=== PATIENT | male | born 1930 | race Caucasian/White ===

== ENCOUNTER → 2016-03-20 | Outpatient (CLI) | payer MEDICARE, BC ==
[2016-03-20 08:16] LABS: ALT 36 U/L (21-72); AST 22 U/L (17-59); Cholesterol 171 mg/dL (<200); HDL Cholesterol 49 mg/dL (40-60); Triglycerides 171 mg/dL (<150)
== END | disposition home or self-care (01) ==
LOC: LABWHC1 07:14
PROVIDERS: ATTEND Internal Medicine Interventional Cardiology
DX: E78.2 Mixed hyperlipidemia (principal)
CPT/HCPCS: 36415; 80061; 84450; 84460

== ENCOUNTER 2016-04-16 07:01 | Inpatient (IN) | payer MEDICARE, BC ==
[2016-04-16] MEDS ORDERED: NITROGLYCERIN OINT 1 INCH/GM PACKET TOPICAL STA (07:15)
[2016-04-16] MEDS ORDERED: ASPIRIN 81 MG CHEW PO STA (07:15)
--- NOTE | 2016-04-16 07:17 | ED ---
Chest Pain HPI - General Chief Complaint: Chest Pain Stated Complaint: Sob/chest pain Time Seen by Provider: 04/16/16 07:12 Source: patient, RN notes reviewed Mode of arrival: ambulatory Limitations: no limitations - History of Present Illness Initial Comments: Patient is a pleasant 86-year-old male presenting to the emergency department complaining of chest discomfort and shortness of breath. Onset of symptoms was last night. Symptoms now seem improved with oxygen. Symptoms did worsen with exertion walking to the car. Patient describes discomfort as an ache. There is some associated dyspnea. No leg pain or swelling. No cough or fever. No diaphoresis or nausea. No history of similar symptoms previously. - Related Data Home Medications Medication Instructions Recorded Confirmed Atenolol [Tenormin] 25 mg PO DAILY 09/17/13 04/16/16 Aspirin 81 mg PO DAILY 12/26/14 04/16/16 Multivit-Min/FA/Lycopene/Lut 1 tab PO DAILY 12/26/14 04/16/16 [Centrum Silver Tablet] Atorvastatin [Lipitor] 20 mg PO HS 04/16/16 04/16/16 [place]-3 Fatty Acids/Fish Oil [Fish 1 cap PO DAILY 04/16/16 04/16/16 Oil 1,000 mg Softgel] Previous Rx's Medication Instructions Recorded Nitroglycerin Sl Tabs [Nitrostat] 0.4 mg SUBLINGUAL Q5M PRN #25 tab 12/29/14 Allergies Allergy/AdvReac Type Severity Reaction Status Date / Time Penicillins AdvReac Rash/Hives Verified 04/16/16 07:47 Review of Systems ROS Statement: Those systems with pertinent positive or pertinent negative responses have been documented in the HPI. ROS Other: All systems not noted in ROS Statement are negative. Constitutional: Denies: fever Eyes: Denies: eye pain ENT: Denies: ear pain Respiratory: Reports: dyspnea. Denies: cough Cardiovascular: Reports: chest pain Endocrine: Denies: fatigue Gastrointestinal: Denies: abdominal pain Genitourinary: Denies: dysuria Musculoskeletal: Denies: back pain Skin: Denies: rash Neurological: Denies: weakness EKG Findings - EKG Comments: EKG Findings:: Sinus rhythm at 71. PVC is present. SC 190. QRS 92. QT 406. QTc 441. Normal axis. Normal QRS. No acute ST changes. Past Medical History Past Medical History: Chest Pain / Angina, Hyperlipidemia Additional Past Medical History / Comment(s): SOB, arthritis, History of Any Multi-Drug Resistant Organisms: None Reported Past Surgical History: Back Surgery, Cholecystectomy, Coronary Bypass/CABG, Heart Catheterization With Stent Additional Past Surgical History / Comment(s): back x 2, bone removed from left hip-placed in neck, cataracts Past Anesthesia/Blood Transfusion Reactions: No Reported Reaction Date of Last Stent Placement:: 2008 Past Psychological History: Anxiety Smoking Status: Former smoker Past Alcohol Use History: None Reported Past Drug Use History: None Reported - Past Family History Brother(s) Family Medical History: Cancer Sister(s) Family Medical History: Cancer, Deep Vein Thrombosis (DVT) General Exam Limitations: no limitations General appearance: alert, in no apparent distress Head exam: Present: atraumatic Eye exam: Present: normal appearance, PERRL ENT exam: Present: normal oropharynx Neck exam: Present: normal inspection Respiratory exam: Present: normal lung sounds bilaterally. Absent: chest wall tenderness Cardiovascular Exam: Present: regular rate, normal rhythm Expanded Peripheral pulses: 2+: Radial (R), Radial (L), Posterior Tibialis (R), Posterior Tibialis (L) GI/Abdominal exam: Present: soft. Absent: tenderness Extremities exam: Present: normal inspection. Absent: pedal edema, calf tenderness Neurological exam: Present: alert Psychiatric exam: Present: normal affect, normal mood Skin exam: Absent: rash Course Vital Signs 04/16/16 04/16/16 04/16/16 07:09 07:15 07:40 Temperature 98 F 98.3 F Pulse Rate 70 69 Pulse Rate [ 69 Bilateral Radial] Respiratory 20 15 15 Rate Blood Pressure 171/79 148/68 O2 Sat by Pulse 95 97 Oximetry 04/16/16 09:31 Temperature Pulse Rate 66 Pulse Rate [ Bilateral Radial] Respiratory 14 Rate Blood Pressure 129/68 O2 Sat by Pulse 994 H Oximetry - Reevaluation(s) Reevaluation #1: 04/16/16 10:42 Chest x-ray shows no acute process. Computed tomography scan the chest shows no pulmonary embolism. Possible nodule. Adjacent consolidation correlate for atelectasis/pneumonia. Patient reevaluated and resting comfortably in bed. Patient updated on results and plan. Case was discussed in detail with Dr. Patel, who will admit his patient with consult for cardiology. Admission orders written. Cardiology consult placed. IV heparin started. Critical Care Time Critical Care Time: Yes Total Critical Care Time: 31 Disposition Clinical Impression: Unstable angina pectoris Disposition: ADMITTED IP TO THIS HOSP
--- NOTE | 2016-04-16 08:09 | XR ---
EXAMINATION TYPE: XR chest 2V DATE OF EXAM: 04/16/2016 7:58 AM COMPARISON: NONE INDICATION: Chest pain TECHNIQUE: Single frontal view of the chest is obtained. FINDINGS: The heart size is normal. The pulmonary vasculature is normal. The lungs are clear. There is elevation of the right diaphragm. Fecal debris filled colon is under the diaphragm. IMPRESSION: 1. No acute pulmonary process.
[2016-04-16 08:22] LABS: Basophils % (A) 0 %; CH 31.6; CHCM 33.2; Eosinophils # (A) 0.1 k/uL (0-0.7); Eosinophils % (A) 2 %; HCT 40.8 % (39.0-53.0); HDW 2.49; HGB 13.4 gm/dL (13.0-17.5); Luc # (Auto) 0.23; Luc % (Auto) 3; Lymphocytes # (A) 2.8 k/uL (1.0-4.8); Lymphocytes % (A) 39 %; MCH 31.4 pg (25.0-35.0); MCHC 32.9 g/dL (31.0-37.0); MCV 95.4 fL (80.0-100.0); Mean Platelet Volume 7.1; Monocytes # (A) 0.5 k/uL (0-1.0); Monocytes % (A) 7 %; Neutrophils # (A) 3.4 k/uL (1.3-7.7); Neutrophils % (A) 49 %; RBC 4.27 m/uL (4.30-5.90); RDW 14.3 % (11.5-15.5); WBC 7.1 k/uL (3.8-10.6); WBC (Perox) 7.25
[2016-04-16 08:36] LABS: ALT 25 U/L (21-72); AST 19 U/L (17-59); Alkaline Phosphatase 62 U/L (38-126); Anion Gap 11 mmol/L; Blood Urea Nitrogen 21 mg/dL (9-20); Calcium 9.5 mg/dL (8.4-10.2); Carbon Dioxide 22 mmol/L (22-30); Chloride 109 mmol/L (98-107); Glucose 98 mg/dL (74-99); Magnesium 2.2 mg/dL (1.6-2.3); Non-African American GFR(MDRD) >60 (>60 ml/min/1.73 sqM); Potassium 4.2 mmol/L (3.5-5.1); Sodium 142 mmol/L (137-145); Total Bilirubin 0.6 mg/dL (0.2-1.3); Total Protein 6.5 g/dL (6.3-8.2)
[2016-04-16 08:44] LABS: Partial Thromboplastin Time 23.3 sec (22.0-30.0); Prothrombin Time 10.4 sec (9.0-12.0)
[2016-04-16 09:20] LABS: Creatine Kinase MB 2.8 ng/mL (0.0-2.4)
[2016-04-16] MEDS ORDERED: RX INFO: IV CONTRAST WAS GIVEN 1 EACH MISC MISCELLANE PRN (09:31)
--- NOTE | 2016-04-16 10:31 | CT ---
CT CHEST FOR PULMONARY EMBOLISM. EXAMINATION TYPE: CT angio chest DATE OF EXAM: 04/16/2016 10:02 AM INDICATION: SOB, chest pain CT DLP: 641 mGycm, Automated exposure control for dose reduction was used. CONTRAST: Patient injected with 100 ml mL of Omnipaque 350. COMPARISON: NONE TECHNIQUE: CT of the chest is performed on a spiral scan at 2 mm thick sections. Study is performed with intravenous contrast timed for evaluation for pulmonary embolism. This will limit additional po rtions of the evaluation. 3-D MIP images reconstructed by the technologist are reviewed on the compu ter in the coronal and sagittal planes. FINDINGS: No persistent filling defects are evident to suggest an acute pulmonary embolism. No mediastinal or hilar adenopathy enlarged by CT criteria is evident. A few shoddy lymph nodes are present. Vascular calcifications within the aorta. The ascending aorta diameter at the level of the m ain pulmonary artery is 3.9 cm. The main pulmonary artery diameter at the bifurcation is 2.9 cm. Streak opacities in the superior segment right lower lobe most likely on the basis of atelectasis. At the inferior posterior right lobe there is a consolidation. Atelectasis and pneumonia should be cons idered. There is a suggestion there may be a 0.7 cm on a lung nodule at the right lung base. Follow-u p is recommended. Series [address] sections are obtained through the upper abdomen. There is a 1.9 cm cyst measuring 4 [place]ounsf [place]eld units along the anterior inferior right lobe liver. IMPRESSIONS: 1. No acute pulmonary embolism. 2. Possible lung nodule posterior right lung base. This is adjacent to right lung base consolidation. Correlate for atelectasis and pneumonia. Follow-up chest CT is recommended.
[2016-04-16] MEDS ORDERED: HEPARIN SODIUM,PORCINE 5,000 UNIT/ML 1 ML VIAL IV ONE (10:43)
[2016-04-16] MEDS ORDERED: HEPARIN SODIUM,PORCINE 5,000 UNIT/ML 1 ML VIAL IV PRN (10:43)
[2016-04-16] MEDS ORDERED: NITROGLYCERIN SL TABS 0.4 MG TAB SUBLINGUAL PRN (10:43)
[2016-04-16] MEDS: HEPARIN SODIUM,PORCINE/D5W PMX 25,000 UNIT in DEXTROSE/WATER 1 500ML.BAG IV SCH (11:03)
[2016-04-16] MEDS: NITROGLYCERIN OINT 1 INCH/GM PACKET TOPICAL SCH ×3 (14:23→23:49)
[2016-04-16 14:51] LABS: Troponin I 0.04 ng/mL (0.000-0.034)
[2016-04-16 15:37] LABS: Troponin I 0.032 ng/mL (0.000-0.034)
[2016-04-16 15:45] LABS: Creatine Kinase MB 2.6 ng/mL (0.0-2.4)
[2016-04-16 19:41] LABS: Troponin I 0.023 ng/mL (0.000-0.034)
[2016-04-16] MEDS ORDERED: ATORVASTATIN 20 MG TAB PO SCH (21:00)
[2016-04-17 05:57] LABS: Mean Platelet Volume 7.5
[2016-04-17 06:14] LABS: Cholesterol 154 mg/dL (<200); HDL Cholesterol 52 mg/dL (40-60); Triglycerides 107 mg/dL (<150)
--- NOTE | 2016-04-17 06:26 | HP ---
DATE OF ADMISSION: Mr. Hopper is an 86-year-old gentleman. The patient presented earlier today to the emergency room with chest pain as his chief complaint. HISTORY OF PRESENT ILLNESS: This patient once again is 86, stated last night he developed some left chest ache apparently after showering in his house. He was short of breath, had finally eased. This morning though he woke up and still had some discomfort. It seemed to wax and wane a bit. It got worse when he was trying to walk to his car, short of breath associated with this. No fever, chills or cough. The patient has a history of coronary artery disease. Apparently had stenting a little under 2 years ago when he was found to have at catheterization, obstructive disease involving the proximal right coronary and at that time underwent stenting with a drug-eluting stent by Dr. Flores and this was back in December 2014. The patient has risk factors with hyperlipidemia and hypertension. He also has underlying arthritis, degenerative type. Home medications include: 1. [place]-3 fatty acid. 2. Fish oil. 3. Nitroglycerin sublingual. 4. Centrum Silver vitamins. 5. For medicines, atorvastatin 20 mg at bedtime. 6. Atenolol 25 mg daily. 7. Aspirin 81 mg daily. There is a history of allergies to PENICILLIN with rash and hives. REVIEW OF SYSTEMS: As mentioned in the history of present illness. No definite fever or chills. No nausea, vomiting. No urinary or bowel symptoms or leg edema. Other surgical history includes back surgery, cholecystectomy, previous coronary artery bypass and catheterization with stenting along with cataract surgery. Family history is positive for previous history of DVT and cancer with his brothers. SOCIAL HISTORY: He is a former smoker. He has been recently and lives on his own, rather self sufficient. On physical examination, a pleasant gentleman sitting up in bed, in no acute distress. Vital signs reveal a temperature 98.8, pulse of 68, respirations 16, and blood pressure 148/78 and he is 97% saturated on room air. Head and neck exam unremarkable, atraumatic. Extraocular movements are intact. Neck is supple without thyromegaly, adenopathy, or bruits. Lungs were clear to auscultation and percussion. Heart revealed a regular S1, S2 without murmurs or rubs appreciated. Abdomen is nontender. EXTREMITIES: No edema. RECTAL AND GENITAL EXAM: Deferred. Neurologic exam reveals him to be alert and oriented. Cranial nerves intact. No focal weakness noted. Laboratory testing revealed a white count of 7.1, hemoglobin 13.4 and a platelet count of 208. INR 1.0. D-dimer was elevated at 1.51. Electrolytes unremarkable. His BUN was 21, creatinine 0.9 giving him a GFR greater than 60. His troponin initially was 0.04 went down to 0.032. His albumin 39. Other liver function tests were unremarkable. The patient had a chest x-ray which showed no acute pulmonary process. Because of the D-dimer being elevated, A CT angiogram was performed, which showed no acute pulmonary embolus. There is some question of a possible nodule in the right lung base and patient's EKG revealed a sinus rhythm, rate 71, some PVCs were noted, but no acute ischemic changes present. OVERALL IMPRESSION AT THIS POINT: 1. His overall symptoms consistent with an unstable angina picture with a mild elevated troponins with history of coronary artery disease with previous bypass and stenting as described above. 2. Risk factors with hyperlipidemia and hypertension. Plans at this point, the patient will be monitored. Serial EKG and enzymes. Instructed the patient not to eat after midnight until seen by Cardiology in the morning. Further recommendations and treatment pending clinical response and results of above. MTDD
--- NOTE | 2016-04-17 08:06 | P.PN ---
Progress Note - Text The patient is an 86 showed gentleman who has a history of underlying coronary artery disease with previous catheterization and stenting about 18 months ago. Presented yesterday with recurrent chest pain. Found to have a mildly elevated troponin on presentation. He has been on heparin and nitrates and has not had any further in-hospital angina type pain. Vital signs reveal temperature 97.5 with a pulse of 67 and respirations 16. Blood pressure 143/70 knee is 96% saturated on 2 L nasal cannula. Lung and heart exam is clear and regular at this time. Abdomen nontender. No edema. No new neurological changes. Labs: Troponins have decreased from 0.04 demonstrated to 0.0-3. CKs have remained stable although CK-MBs were slightly elevated. PTT is 47.9 on heparin. Cholesterol values were good with an LDL cholesterol of 81. Patient does have some problems with statin medications. Impressions and plans: Continue present treatment awaiting for opinion from cardiology as far as further workup. Discussed with patient at bedside.
--- NOTE | 2016-04-17 08:30 | P.CRDCN ---
History of Present Illness Consult date: 04/17/16 Requesting physician: Jarrett Mccabe Consult reason: chest pain Chief complaint: Chest pain History of present illness: This is a pleasant 86-year-old gentleman who follows regularly with Dr. Flores in the office. He has a known history of coronary artery disease with prior coronary artery bypass grafting surgery in 1998, subsequent to that patient underwent stent to the circumflex in 2008, most recently in December 2014 patient underwent angioplasty with stenting of the right coronary artery. He also has a history of hypertension, and hyperlipidemia. He presents to the hospital with symptoms of chest discomfort. Patient states that on Friday evening after arriving home, he became quite short of breath, shortly thereafter he developed of midsternal chest pressure and heaviness which radiated to the left side of his chest. He took a sublingual nitroglycerin, he states that symptoms lasted about 45 minutes in duration. He denies any diaphoresis or nausea. Patient states that he slept well that night, had some mild discomfort in the morning and came to the emergency room for further evaluation. Laboratory data was reviewed, CBC normal, d-dimer 1.5, potassium 4.2, BUN 21, creatinine 0.9, troponin 0.040, 0.032, 0.023. BNP level 788. CTA of the chest was performed because of abnormal d-dimer, negative for pulmonary embolism. Possible lung nodule in the posterior right lung base. Initial EKG showed a normal sinus rhythm with mild lateral ST depression and occasional PVC. Repeat EKG performed this morning showed normal sinus rhythm with occasional PVC. At the time of my examination this morning, patient is currently chest pain-free. Blood pressure 142/70 with a heart rate in the 60s. Past Medical History Past Medical History: Coronary Artery Disease (CAD), Chest Pain / Angina, Eye Disorder, Hyperlipidemia Additional Past Medical History / Comment(s): Past glaucoma L eye but sx corrected. History of Any Multi-Drug Resistant Organisms: None Reported Past Surgical History: Adenoidectomy, Back Surgery, Cholecystectomy, Coronary Bypass/CABG, Heart Catheterization With Stent, Hernia Repair, Orthopedic Surgery , Tonsillectomy Additional Past Surgical History / Comment(s): 12/2014 PCI with stent, 2008 PCI with stent, 1998 CABG-1 vessel, back x 2, bone removed from left hip-placed in neck, bilateral cataracts removal and procedure to L eye for glaucoma, L inguinal hernia repair, colonoscopy. Past Anesthesia/Blood Transfusion Reactions: No Reported Reaction Date of Last Stent Placement:: 2014 Past Psychological History: Anxiety Additional Psychological History / Comment(s): Pt resides alone. His spouse in November 2015. He had been her oil refinery process technician for years. He uses no assistive device. He drives. Smoking Status: Former smoker Past Alcohol Use History: None Reported Additional Past Alcohol Use History / Comment(s): Pt started smoking in 1943 and quit in 1962. Past Drug Use History: None Reported - Past Family History Father Additional Family Medical History / Comment(s): Father of a brain tumor at the age of 56yrs. Unknown if it was cancerous. Mother Family Medical History: Cancer Additional Family Medical History / Comment(s): Mother had colon cancer removed with surgery. She lived to be 83 or 84yrs old. Brother(s) Family Medical History: Cancer Sister(s) Family Medical History: Cancer, Deep Vein Thrombosis (DVT) Medications and Allergies Home Medications Medication Instructions Recorded Confirmed Type Atenolol [Tenormin] 25 mg PO DAILY 09/17/13 04/16/16 History Aspirin 81 mg PO DAILY 12/26/14 04/16/16 History Multivit-Min/FA/Lycopene/Lut 1 tab PO DAILY 12/26/14 04/16/16 History [Centrum Silver Tablet] Atorvastatin [Lipitor] 20 mg PO HS 04/16/16 04/16/16 History [place]-3 Fatty Acids/Fish Oil [Fish 1 cap PO DAILY 04/16/16 04/16/16 History Oil 1,000 mg Softgel] Allergies Allergy/AdvReac Type Severity Reaction Status Date / Time Penicillins AdvReac Rash/Hives Verified 04/16/16 07:47 Physical Exam Vitals: Vital Signs Temp Pulse Pulse Resp BP BP Pulse Ox 04/17/16 07:48 97.5 F L 67 16 143/70 96 04/17/16 04:00 97.4 F L 71 16 129/69 95 04/16/16 23:53 64 16 141/64 96 04/16/16 20:55 97.0 F L 71 16 123/74 96 04/16/16 15:55 98.8 F 68 16 148/78 97 04/16/16 12:00 97.7 F 70 14 144/84 97 04/16/16 11:28 97.7 F 69 14 127/64 97 04/16/16 10:56 73 15 133/65 96 Intake and Output 04/16/16 04/17/16 04/17/16 22:59 06:59 14:59 Intake Total 549.333 Balance 549.333 Intake: Intake, IV Titration 199.333 Amount Heparin Sodium,Porcine/ 199.333 D5w Pmx 25,000 unit In Dextrose/Water 1 500ml. bag @ 11.853 UNITS/KG/HR 20 mls/hr IV .Q24H MO[facility] Rx #:[id number] Oral 350 Other: Voiding Method Toilet # Voids 1 1 Weight 90.6 kg PHYSICAL EXAMINATION: HEENT: Head is atraumatic, normocephalic. Pupils equal, round. Neck is supple. There is no elevated jugular venous pressure. HEART EXAMINATION: Heart S1 and S2 systolic ejection murmur is heard. CHEST EXAMINATION: Lungs are clear to auscultation and precussion. No chest wall tenderness is noted on palpation or with deep breathing. ABDOMEN: Soft, nontender. Bowel sounds are heard. No organomegaly noted. EXTREMITIES: 2+ peripheral pulses with no evidence of peripheral edema and no calf tenderness noted. NEUROLOGIC patient is awake, alert and oriented -3. . Results 04/17/16 05:31 04/16/16 07:20 Cardiac Enzymes 04/16/16 04/16/16 Range/Units 14:09 18:54 CK-MB (CK-2) 2.6 H* 2.0 (0.0-2.4) ng/mL Troponin I 0.032 0.023 (0.000-0.034) ng/mL Coagulation 04/16/16 04/17/16 Range/Units 18:54 05:31 APTT 34.4 H 47.9 H (22.0-30.0) sec Lipids 04/17/16 Range/Units 05:31 Triglycerides 107 (<150) mg/dL Cholesterol 154 (<200) mg/dL HDL Cholesterol 52 (40-60) mg/dL CBC 04/17/16 Range/Units 05:31 Plt Count 181 (150-450) k/uL Current Medications Generic Name Dose Route Start Last Admin Trade Name Freq PRN Reason Stop Dose Admin Aspirin 325 mg 04/17/16 09:00 Aspirin PO DAILY [facility] Atenolol 25 mg 04/17/16 09:00 Tenormin PO DAILY [facility] Atorvastatin Calcium 20 mg 04/16/16 21:00 04/16/16 20:49 Lipitor PO Not Given HS MOISE Heparin Sodium (Porcine) 0 unit 04/16/16 10:43 Heparin IV Q6HR PRN Low PTT Protocol Heparin Sodium/Dextrose 25,000 500 mls @ 20 mls/hr 04/16/16 10:45 04/16/16 21 :01 unit/ IV Solution IV 14.85 units/kg/hr .Q24H MOISE 25.05 mls/hr Protocol Titration 11.853 UNITS/KG/HR Miscellaneous Information 1 each 04/16/16 09:31 Rx Info: Iv Contrast Was Given MISCELLANE 04/18/16 09:31 DAILY PRN Per Protocol Nitroglycerin 1 inch 04/16/16 12:00 04/16/16 23:49 Nitro-Bid Oint TOPICAL 1 inch Q6HR MOISE Administration Nitroglycerin 0.4 mg 04/16/16 10:43 Nitrostat SUBLINGUAL Q5M PRN Chest Pain Sodium Chloride 10 ml 04/16/16 21:00 04/16/16 20:50 Saline Flush IV Not Given BID MOISE Intake and Output 04/16/16 04/17/16 04/17/16 22:59 06:59 14:59 Intake Total 549.333 Balance 549.333 Intake: Intake, IV Titration 199.333 Amount Heparin Sodium,Porcine/ 199.333 D5w Pmx 25,000 unit In Dextrose/Water 1 500ml. bag @ 11.853 UNITS/KG/HR 20 mls/hr IV .Q24H [facility] Rx #:[id number] Oral 350 Other: Voiding Method Toilet # Voids 1 1 Weight 90.6 kg 04/17/16 05:31 EKG Interpretations (text) EKG shows normal sinus rhythm with minimal lateral ST depression and occasional PVC. Assessment and Plan Plan: Assessment and plan #1 symptoms of midsternal chest discomfort with associated shortness of breath, suggestive of acute coronary syndrome. Troponins 0.040, 0.032, 0.023. EKG shows normal sinus rhythm with mild lateral ST depression and occasional PVC. #2 known history of coronary artery disease with prior bypass surgery, circumflex stenting, and RCA stent in 2014. #3 hypertension #4 hyperlipidemia Plan We will continue IV heparin. Obtain echocardiogram with Doppler study. The patient has been advised that he may need to undergo cardiac catheterization for more definitive diagnosis. Further recommendations to follow. DNP note has been reviewed, I agree with a documented findings and plan of care. Patient was seen and examined.
[2016-04-17] MEDS ORDERED: ASPIRIN 325 MG TAB PO SCH (09:00)
[2016-04-17] MEDS: ATENOLOL 25 MG TAB PO SCH (09:52)
--- NOTE | 2016-04-17 09:59 | ECHOF ---
Referral Reason: MEASUREMENTS -------- HEIGHT: 179.1 cm WEIGHT: 90.3 kg BP: 143/70 RVIDd: 3.3 cm (< 3.3) IVSd: 1.3 cm (0.6 - 1.1) LVIDd: 4.8 cm (3.9 - 5.3) LVPWd: 1.3 cm (0.6 - 1.1) IVSs: 1.8 cm LVIDs: 3.2 cm LVPWs: 1.8 cm LA Diam: 3.6 cm (2.7 - 3.8) LAESV Index (A-L): 23.25 ml/m Ao Diam: 3.5 cm (2.0 - 3.7) AV Cusp: 2.1 cm (1.5 - 2.6) LA Diam: 3.2 cm (2.7 - 3.8) MV EXCURSION: 10.738 mm (> 18.000) MV EF SLOPE: 39 mm/s (70 - 150) EPSS: 0.8 cm MV E [place]: 0.71 m/s MV DecT: 387 ms MV A [place]: 1.08 m/s MV E/A Ratio: 0.66 AV maxP.14 mmHg AV meanP.68 mmHg RAP: 5.00 mmHg RVSP: 30.87 mmHg FINDINGS -------- Sinus rhythm with extra systolic beats. This was a technically good study. The left ventricular size is normal. There is mild concentric left ventricular hypertrophy. Overall left ventricular systolic function is normal with, an EF between 55 - 60 %. The right ventricle is mildly enlarged. Normal LA size by volume 22+/-6 ml/m2. The right atrium is normal in size. Aortic valve is trileaflet and is moderately thickened. There is mild aortic stenosis present. Peak/mean gradient across the Aortic Valve is 23.14mmHg / 10.68mmHg. Mild mitral regurgitation is present. Mild tricuspid regurgitation present. Right ventricular systolic pressure is normal at < 35 mmHg. The pulmonic valve is normal. There is no pulmonic regurgitation present. The aortic root size is normal. IVC Not well visulized. There is no pericardial effusion. CONCLUSIONS -------- 1. Sinus rhythm with extra systolic beats. 2. There is mild aortic stenosis present. 3. Peak/mean gradient across the Aortic Valve is 23.14mmHg / 10.68mmHg. 4. Mild mitral regurgitation is present. 5. Mild tricuspid regurgitation present. 6. Right ventricular systolic pressure is normal at < 35 mmHg. 7. The pulmonic valve is normal. 8. The aortic root size is normal. 9. IVC Not well visulized. 10. There is no pericardial effusion. 11. This was a technically good study. 12. The left ventricular size is normal. 13. There is mild concentric left ventricular hypertrophy. 14. Overall left ventricular systolic function is normal with, an EF between 55 - 60 %. 15. The right ventricle is mildly enlarged. 16. Normal LA size by volume 22+/-6 ml/m2. 17. The right atrium is normal in size. 18. Aortic valve is trileaflet and is moderately thickened. [employer] ENGINEER: Annamarie Hinojosa RDCS
[2016-04-17] MEDS ORDERED: BIVALIRUDIN BOLUS 250 MG/50 ML IV ONE (11:35)
[2016-04-17] MEDS: NITROGLYCERIN OINT 1 INCH/GM PACKET TOPICAL SCH ×2 (12:14→12:16)
[2016-04-17] MEDS: HEPARIN SODIUM,PORCINE/D5W PMX 25,000 UNIT in DEXTROSE/WATER 1 500ML.BAG IV SCH (12:18)
[2016-04-17] MEDS ORDERED: SODIUM CHLORIDE 0.9% 1,000 ML in EMPTY BAG 1 BAG IV ONE (12:39)
[2016-04-17] MEDS ORDERED: ALPRAZolam 0.25 MG TAB PO PRN (12:39)
[2016-04-17] MEDS ORDERED: ATORVASTATIN 80 MG TAB PO STA (12:39)
[2016-04-17] MEDS ORDERED: ALPRAZolam 0.5 MG TAB PO PRN (12:39)
[2016-04-17] MEDS ORDERED: ASPIRIN 325 MG TAB PO STA (12:39)
[2016-04-17] MEDS ORDERED: NITROGLYCERIN SL TABS 0.4 MG TAB SUBLINGUAL PRN ×2 (12:39→14:07)
[2016-04-17] MEDS ORDERED: diphenhydrAMINE 50 MG/ML 1 ML VIAL ONE (13:05)
[2016-04-17] MEDS ORDERED: fentaNYL (PF) 50 MCG/ML 2 ML AMP ONE (13:05)
[2016-04-17] MEDS ORDERED: diphenhydrAMINE 50 MG/ML 1 ML VIAL IVP ONE (13:23)
[2016-04-17] MEDS ORDERED: fentaNYL (PF) 50 MCG/ML 2 ML AMP IV ONE (13:24)
[2016-04-17] MEDS ORDERED: LIDOCAINE 2% INJ 20 MG/ML SQ ONE (13:26)
[2016-04-17] MEDS ORDERED: BIVALIRUDIN 250 MG in SODIUM CHLORIDE 0.9% 50 ML IV ONE (13:37)
[2016-04-17] MEDS ORDERED: CLOPIDOGREL 75 MG TAB ONE (13:40)
[2016-04-17] MEDS ORDERED: CLOPIDOGREL 75 MG TAB PO ONE (13:47)
[2016-04-17] MEDS ORDERED: NITROGLYCERIN 1000MCG/10ML SYRINGE INTRACORON ONE (13:50)
[2016-04-17] MEDS ORDERED: IOHEXOL 350 MG/ML 100 ML BOTTLE INJ ONE (14:02)
[2016-04-17] MEDS ORDERED: ATROPINE SULFATE 0.1 MG/ML 10ML SYRINGE IV PRN (14:07)
[2016-04-17] MEDS ORDERED: ZOLPIDEM 5 MG TAB PO PRN (14:07)
[2016-04-17] MEDS ORDERED: RX INFO: IV CONTRAST WAS GIVEN 1 EACH MISC MISCELLANE PRN (14:07)
[2016-04-17] MEDS ORDERED: MAG HYDROX/AL HYDROX/SIMETH 30 ML CUP PO PRN (14:07)
[2016-04-17] MEDS ORDERED: SODIUM CHLORIDE 0.9% 1,000 ML IV SCH (14:15)
--- NOTE | 2016-04-17 18:10 | CC ---
DATE OF SERVICE: Mr. Hopper is an 86-year-old male with known history of coronary artery disease, status post coronary artery bypass grafting, history of percutaneous revascularization, hypertension, hyperlipidemia, who presented with symptoms of chest discomfort and evidence of non- ST segment elevation myocardial infarction. In view of that, recommendation was made regarding cardiac catheterization. The procedure as well as risks and complications were discussed with the patient who is in full understanding and agreement. PROCEDURE: Patient was brought to the [facility] in a fasting semisedated state after obtaining conscious moderate sedation. Following that, using Seldinger technique, a 6 [place] African sheath was introduced in the right femoral artery. Selective right and left coronary angiography was performed using 6 South African 4 bend right and left Sima catheters. Multiple views of the coronary artery including hemiaxial views were obtained. Following that, the 6 South African right Sima catheter was introduced to cannulate the TROTTER to the LAD. Images of the grafts were obtained. Following that, a 6 South African tight pigtail catheter was introduced into the left ventricle and a 30-degree BLACK view of the left ventricle was obtained. Following that, catheter was removed. Images were reviewed. FINDINGS: LEFT MAIN: This is a short-sized vessel bifurcating into circumflex and left anterior descending artery. Left main coronary artery has a 10% to 20% plaque distally. LEFT ANTERIOR DESCENDING ARTERY: This vessel is totally occluded proximally at the take off of the first diagonal branch. The diagonal branch has mild to moderate disease of 40% without any evidence of high-grade stenosis. LEFT CIRCUMFLEX: This is a large vessel, nondominant, giving rise to 3 obtuse marginal branches. The first one is the smallest in caliber and has about 90% stenosis at the takeoff. Shortly after the takeoff of the first obtuse marginal branch there is a 99% stenosis. The stented segment in the mid and distal left circumflex is patent with no evidence of significant restenosis. There is mild intimal disease in the mid nonstented segment. RIGHT CORONARY ARTERY: This is a large dominant vessel, bifurcating distally into PDA and posterolateral segment and branches. The proximal stented segment is patent. The mid segment has a 50% plaque. The distal vessel has mild intimal disease. The rest of the vessel has no high-grade stenosis. TROTTER TO THE LAD: The distal anastomotic site is patent. The flow into the left anterior descending is brisk. There was no evidence of high-grade stenosis. LEFT VENTRICULOGRAM: Left ventriculogram was performed in 30-degree BLACK view and revealed normal left ventricle size and systolic function. Ejection fraction was 60%. There was no significant mitral regurgitation. HEMODYNAMICS: There was no gradient across the aortic valve. The left ventricle end-diastolic was 20 mmHg. CONCLUSION: 1. Chronic occluded proximal left anterior descending. 2. Patent left internal mammary artery to the left anterior descending. 3. Patent stent to the proximal right coronary artery with moderate disease in the mid right coronary artery. 4. Patent stent to the mid and distal left circumflex, but with critical stenosis in the proximal left circumflex. 5. Normal left ventricular size and systolic function. RECOMMENDATIONS: In view of findings and anatomy, I have recommended proceeding with angioplasty and stenting of the left circumflex. The procedure as well as risks and complications were discussed with the patient who is in full understanding and agreement.
--- NOTE | 2016-04-17 19:03 | PTCA ---
DATE OF SERVICE: This is an 86-year-old male who presented with evidence of non-ST segment elevation myocardial infarction, underwent cardiac catheterization, was found to have critical stenosis involving the proximal left circumflex. In view of that, recommendation made regarding angioplasty and stenting. The procedure as well as risk and complications were discussed with the patient, who is in full understanding and agreement. PROCEDURE: A 6 Slovak FR4 guiding catheter was introduced into the system. After cannulating the left main, a 0.014 balanced medium weight J-wire was advanced across the lesion positioned distally. Then a 2.5 x 12 Trek balloon was advanced. One inflation at 8 atmospheres were done. Following that, the balloon was removed and 2.75 x 18 mm Xience Alpine stent was deployed, postdilated at 14 atmospheres. After the last inflation, after appropriate wait, the balloon and the guidewire were withdrawn back in the guiding catheter. Images were obtained and repeated. Those images revealed stable successful stenting. At that point, the guiding catheter, the balloon and the guidewire were removed. The sheath was removed. Hemostasis was obtained with deployment of an Angio-Seal. There were no immediate complications. Patient is returned to his room in stable condition. Of note, the patient received Angiomax per protocol as well as oral loading dose of Clopidogrel. He had no significant chest pain or EKG changes with the inflations. Duration of the procedure was 39 minutes. RESULT: Successful stenting of the proximal left circumflex with reduction in stenosis from 99% to 0%. RECOMMENDATIONS: Patient will be continued on aspirin, Plavix, beta tavo and statin. The importance of dual antiplatelet treatment was discussed with the patient and his family and are in full understanding and agreement. RAMONE
--- NOTE | 2016-04-17 19:06 | LTR ---
April 17, 2016 RE: Celio Hopper Dear Dr. Mccabe: I had the pleasure of performing cardiac catheterization on Mr. Operating room at [facility] on April 17, 2016. A full copy of procedure note will be forwarded to you. In brief he was found to have significant stenosis involving the proximal left circumflex with a patent TROTTER to the LAD. In view of that, he underwent successful stenting of that vessel using a drug-eluting stent. I am hopeful that this procedure will stabilize his status. Thank you again for allowing me to participate in his care. Please feel free to call for any questions. Sincerely, SALLY ALMANZA MD
[2016-04-18 06:41] LABS: Anion Gap 9 mmol/L; Blood Urea Nitrogen 19 mg/dL (9-20); Calcium 9.5 mg/dL (8.4-10.2); Carbon Dioxide 25 mmol/L (22-30); Chloride 107 mmol/L (98-107); Glucose 112 mg/dL (74-99); Non-African American GFR(MDRD) >60 (>60 ml/min/1.73 sqM); Potassium 4.4 mmol/L (3.5-5.1); Sodium 141 mmol/L (137-145)
--- NOTE | 2016-04-18 07:39 | P.PN ---
Progress Note - Text The patient is an 86-year-old gentleman with a history of coronary artery disease that presented with recurrent chest pain. Initial laboratory values revealed elevated troponin at 0.04 which decreased down to 0.0-3 on the third determination. He was placed on heparin consultation obtained with cardiology. Patient underwent heart catheterization and was found to have significant stenosis involving the proximal left circumflex with patent TROTTER to the LAD. Patient underwent successful stenting using a drug-eluting stent yesterday. The patient has had no further chest discomfort. He's been ambulating on the araya. His vital signs reveal temperature 97.5 with a pulse of 63 and respirations 16. Blood pressure 140/48 and he is 95% saturated on room air. Lung and heart examination is clear. No neurological deficits. No edema. Labs this morning reveal a normal electrolytes with a potassium 4.4. Blood sugar is 112. BUN of 19 with creatinine 1.04 given him a GFR greater than 60. Patient's cholesterol values were good with a triglyceride of 107, total cholesterol 154 and an LDL cholesterol of 81. HDL 52. Patient does have some musculoskeletal side effects from statins. Impressions and plans: Overall this 86-year-old gentleman with coronary artery disease having undergone angioplasty as described above. Anticipating discharge to home if okay with cardiology. They are to review any new medications. Patient to follow up with cardiology and myself over the maxillaries 7-10 days.
[2016-04-18] MEDS: ATENOLOL 25 MG TAB PO SCH (08:13)
[2016-04-18 08:48] VITALS: RESP 18
[2016-04-18] MEDS ORDERED: ASPIRIN 81 MG CHEW PO SCH (09:00)
[2016-04-18] MEDS ORDERED: CLOPIDOGREL 75 MG TAB PO SCH (09:00)
--- NOTE | 2016-04-18 11:27 | CDI ---
In responding to this query, please exercise your independent professional judgment. The [facility] Coding Staff and Clinical Documentation Specialists appreciate your assistance in clarifying documentation, maintaining compliance with coding guidelines, accurately documenting patients condition and capturing severity of illness. The fact that a question is asked does not imply that any particular answer is desired or expected. Communication forms are a method of clarifying documentation and are not made part of the Legal Health Record. Thank you in advance for your clarification. Last Revision, April 2015 Alban Whitaker [address] [place] [address] Documentation Clarification Form Date: 04/18/2016 11:16:00 AM From: Marilee Jaureguitony Admit Date: 04/17/2016 2:07:00 PM Patient Name: Celio Hopper Visit Number: [id number] Dr. Jarrett Mccabe Evidence of NSTEMI is documented in the Cardiac Cath report on 04/17. Patient History/Risk Factors: Hypertension Hyperlipidemia CAD with prior CABG Exsmoker Clinical Indicators: Chest discomfort with associated shortness of breath Troponin: 0.040 - 0.032 - 0.023 EKG Results: sinus Cardiac Cath showed critical stenosis to proximal left circumflex Treatment: Consult: Cardiology IV Heparin PO Aspirin Topical Nitro-bid IV Nitro x1 Cardiac Cath PTCA with drug eluting stent to left circumflex In order to capture the severity of condition and necessary documentation specificity, please clarify cause of chest pain: NSTEMI Ruled In? NSTEMI Ruled Out? Unstable Angina? Other (please specify) Unable to Determine Please document in your progress notes and discharge summary in order to capture severity of illness and risk of mortality. Include clinical findings that support your diagnosis. FYI: Press F11 to launch patient chart Place X here if this finding has no clinical significance, is not applicable or if you are not able to provide any additional documentation. RAMONE
[2016-04-18 11:58] VITALS: BP 142/72; PULSE 54; TEMP 97.2
--- NOTE | 2016-04-18 11:58 | P.PN ---
Subjective Principal diagnosis: Chest pain This is a pleasant 86-year-old gentleman who follows regularly with Dr. Flores in the office. He has a known history of coronary artery disease with prior coronary artery bypass grafting surgery in 1998, subsequent to that patient underwent stent to the circumflex in 2008, most recently in December 2014 patient underwent angioplasty with stenting of the right coronary artery. He also has a history of hypertension, and hyperlipidemia. He presents to the hospital with symptoms of chest discomfort. Patient was taken to the cardiac catheterization lab yesterday, where he underwent successful stenting of the proximal circumflex. Examined this morning, denies any chest pain or difficulty in breathing. EKG shows normal sinus rhythm with no changes from post-PCI. Laboratory data was reviewed, potassium 4.4, BUN 19, creatinine 1.0. Blood pressure 132/60 with a heart rate in the 60s. Objective - Vital Signs Vital signs: Vital Signs Temp 97.0 F L 04/18/16 07:55 Pulse 69 04/18/16 07:55 Resp 18 04/18/16 07:55 BP 132/62 04/18/16 07:55 Pulse Ox 95 04/18/16 07:55 Intake & Output 04/17/16 04/18/16 04/18/16 18:59 06:59 18:59 Intake Total 500 600 118 Output Total 850 500 Balance -350 100 118 Weight 89.4 kg Intake: Intake, IV Titration 500 Amount Sodium Chloride 0.9% 1, 500 000 ml @ 100 mls/hr IV . Q10H MOISE Rx#:[id number] Oral 600 118 Output: Urine 850 500 Other: # Voids 3 1 # Bowel Movements 2 - Exam PHYSICAL EXAMINATION: HEENT: Head is atraumatic, normocephalic. Pupils equal, round. Neck is supple. There is no elevated jugular venous pressure. HEART EXAMINATION: Heart S1 and S2 systolic ejection murmur is heard. CHEST EXAMINATION: Lungs are clear to auscultation and precussion. No chest wall tenderness is noted on palpation or with deep breathing. ABDOMEN: Soft, nontender. Bowel sounds are heard. No organomegaly noted. Right groin soft, no evidence of any hematoma. EXTREMITIES: 2+ peripheral pulses with no evidence of peripheral edema and no calf tenderness noted. NEUROLOGIC patient is awake, alert and oriented -3. - Labs CBC & Chem 7: 04/17/16 05:31 04/18/16 05:32 Labs: Abnormal Lab Results - Last 24 Hours (Table) 04/18/16 Range/Units 05:32 Glucose 112 H (74-99) mg/dL Assessment and Plan Plan: Assessment and plan #1 symptoms of midsternal chest discomfort with associated shortness of breath, suggestive of acute coronary syndrome. Troponins 0.040, 0.032, 0.023. EKG shows normal sinus rhythm with mild lateral ST depression and occasional PVC. #2 known history of coronary artery disease with prior bypass surgery, circumflex stenting, and RCA stent in 2014. #3 hypertension #4 hyperlipidemia Plan Patient underwent angioplasty with stent placement of the proximal circumflex. He may be able to be discharged home today from cardiology's perspective, a follow-up appointment will be made with Dr. Flores in the office. The patient will be discharged home on aspirin 81 mg daily, Tenormin 25 mg daily, Lipitor 40 mg daily, Plavix 75 mg daily, we'll also add a small dose of CODI inhibitor to the medication regime, and sublingual nitro as needed for chest pain DNP note has been reviewed, I agree with a documented findings and plan of care. Patient was seen and examined.
[2016-04-18] MEDS ORDERED: ATORVASTATIN 40 MG TAB PO SCH (21:00)
--- NOTE | 2016-04-19 08:13 | DS ---
DATE OF ADMISSION: 04/17/2016 DATE OF DISCHARGE: 04/18/2016 Mr. Hopper is an 86-year-old gentleman with a history of coronary artery disease presented with chest pain elevated troponin. Patient was seen by Cardiology, underwent heart catheterization found to have a significant stenosis involving the proximal left circumflex and underwent angioplasty and stenting with a drug eluting stent. Other laboratory values revealed a white count of 7.1, hemoglobin 13.4 and a platelet count of 208. His INR was 1.0. The patient was initially heparinized. Electrolytes unremarkable. BUN and creatinine of 19 and 1.04 giving a GFR greater than 60. Random blood sugar low 100s. Cholesterol revealed a total cholesterol 154 with an LDL cholesterol of 81, triglycerides 107 and HDL of 52. The patient also had a chest x-ray, which showed no acute pulmonary process and because of an elevated D-dimer on presentation a CAT scan angiogram was performed, which revealed no persistent filling defects evident to suggest acute pulmonary embolus. There was a small 0.7 cm lung nodule in the right lung base. The patient clinically did well. No further chest pain with his angioplasty and plans are now for discharge to home with home medications. The home medications included: 1. Aspirin 81 mg daily. 2. Atenolol 25 mg daily. 3. Lipitor 20 mg at bedtime. 4. Multiple vitamin daily. 5. Nitroglycerin 0.4 sublingual p.r.n. 6. Pomeroy-3 fatty acid 1 tablet daily. 7. Plavix 75mg daily. He will follow up in the office with Cardiology and myself over the next 5 to 7 days. FINAL DISCHARGE DIAGNOSES: 1. Non- ST segment elevated myocardial infarction, status post angioplasty and stenting with a drug eluting stent of the proximal circumflex. 2. Patient with history of coronary artery disease with also previous stenting back in 2014. Please see notes by Dr. Flores. 3. Also history of hyperlipidemia and history of hypertension. The patient has had some problems with statin medications with myalgias in the past. Patient to gradually increase activities. No extensive lifting or stair climbing. Call if any questions, concerns or problems or if recurrent chest pain not relieved by nitroglycerin he is to return to the ER. RAMONE
[2016-04-19] MEDS ORDERED: LISINOPRIL 5 MG TAB PO SCH (09:00)
== END 2016-04-18 13:06 | disposition home or self-care (01) | DRG 247 ==
LOC: EC 07:01 → 6SEL 10:43 → OBSVTOIN 14:07 → INTOOBSV 14:07 → OBSVTOIN 04-17 14:07
PROVIDERS: ADMIT Internal Medicine; ATTEND Internal Medicine
PROC: B2151ZZ Fluoroscopy of Left Heart using Low Osmolar Contrast (ICD-10-PCS; 2016-04-17)
PROC: 027034Z Dilation of Coronary Artery, One Artery with Drug-eluting Intraluminal Device, Percutaneous Approach (ICD-10-PCS; principal; 2016-04-17 13:30)
PROC: B2111ZZ Fluoroscopy of Multiple Coronary Arteries using Low Osmolar Contrast (ICD-10-PCS; 2016-04-17 13:30)
DX: I21.4 Non-ST elevation (NSTEMI) myocardial infarction (principal); I10 Essential (primary) hypertension; E78.5 Hyperlipidemia, unspecified; I49.3 Ventricular premature depolarization; F41.9 Anxiety disorder, unspecified; R91.1 Solitary pulmonary nodule; I25.110 Atherosclerotic heart disease of native coronary artery with unstable angina pectoris; M19.90 Unspecified osteoarthritis, unspecified site; Z95.5 Presence of coronary angioplasty implant and graft; Z87.891 Personal history of nicotine dependence; Z88.0 Allergy status to penicillin; Z79.82 Long term (current) use of aspirin; Z79.899 Other long term (current) drug therapy
CPT/HCPCS: 36415; 71020; 71275; 80048; 80053; 80061; 82550; 82553; 83735; 83880; 84484; 85025; 85049; 85379; 85610; 85730; 93005; 93306; 93459; 96365; 96366; 96376; 99291

== ENCOUNTER → 2017-09-10 | Outpatient (CLI) | payer MEDICARE, BC ==
[2017-09-10 07:19] LABS: Calcium 9.6 mg/dL (8.4-10.2); Potassium 4.9 mmol/L (3.5-5.1)
== END | disposition home or self-care (01) ==
LOC: LABWHC1 06:34
PROVIDERS: ATTEND Internal Medicine
DX: E78.4 Other hyperlipidemia (principal); E87.8 Other disorders of electrolyte and fluid balance, not elsewhere classified; R53.83 Other fatigue
CPT/HCPCS: 36415; 80048; 80061; 84443

== ENCOUNTER → 2017-11-24 | Outpatient (CLI) | payer MEDICARE, BC ==
[2017-11-24 08:26] LABS: HCT 43.2 % (39.0-53.0); MCHC 32.5 g/dL (31.0-37.0); MCV 98.6 fL (80.0-100.0); Mean Platelet Volume 7.4; Platelet Count 202 k/uL (150-450); RBC 4.38 m/uL (4.30-5.90); RDW 14.3 % (11.5-15.5); WBC 6.6 k/uL (3.8-10.6)
[2017-11-24 08:55] LABS: Albumin 3.9 g/dL (3.5-5.0); Calcium 9.5 mg/dL (8.4-10.2); Potassium 5.4 mmol/L (3.5-5.1); Total Bilirubin 0.4 mg/dL (0.2-1.3); Total Protein 6.5 g/dL (6.3-8.2)
== END | disposition home or self-care (01) ==
LOC: LABWHC1 06:48
PROVIDERS: ATTEND Internal Medicine Interventional Cardiology
DX: E87.8 Other disorders of electrolyte and fluid balance, not elsewhere classified (principal); R53.83 Other fatigue; E78.2 Mixed hyperlipidemia
CPT/HCPCS: 36415; 80053; 80061; 84443; 85027

== ENCOUNTER → 2017-12-29 | Outpatient (CLI) | payer MEDICARE, BC ==
--- NOTE | 2017-12-29 14:48 | US ---
EXAMINATION TYPE: US venous doppler duplex LE LT DATE OF EXAM: 12/29/2017 2:38 PM COMPARISON: NONE CLINICAL HISTORY: pain left foot M79.672. SIDE PERFORMED: Left TECHNIQUE: The lower extremity deep venous system is examined utilizing real time linear array sonog bryson with graded compression, doppler sonography and color-flow sonography. VESSELS IMAGED: External Iliac Vein (EIV) Common Femoral Vein Deep Femoral Vein Greater Saphenous Vein * Femoral Vein Popliteal Vein Proximal Calf Veins (* superficial vessels) Left Leg: Negative for DVT IMPRESSION: No evidence for DVT at this time.
== END ==
LOC: RADUSWWP 13:55
PROVIDERS: ATTEND Orthopaedic Surgery
DX: M79.672 Pain in left foot (principal); E78.5 Hyperlipidemia, unspecified; I11.9 Hypertensive heart disease without heart failure; E03.9 Hypothyroidism, unspecified

== ENCOUNTER 2018-08-10 12:31 | Emergency (ER) | payer MEDICARE, BC ==
[2018-08-10] MEDS ORDERED: SODIUM CHLORIDE 0.9% 500 ML 500 ML IV STA (13:44)
[2018-08-10] MEDS ORDERED: ASPIRIN 81 MG PO STA (13:44)
--- NOTE | 2018-08-10 13:44 | ED ---
General Adult HPI - General Source: patient, RN notes reviewed Mode of arrival: wheelchair Limitations: no limitations <Will Parker - Last Filed: 08/10/18 16:53> <Red Dorman - Last Filed: 08/10/18 17:01> - General Chief complaint: Dizziness Stated complaint: low BP, weakness Time Seen by Provider: 08/10/18 13:31 - History of Present Illness Initial comments: 88-year-old male with a past medical history of CAD with 3 stents, chest pain, hyperlipidemia, thyroid disorder presents to the emergency department for a chief complaint of lightheadedness. Patient states this has been ongoing for several weeks possibly months. States that today he was nailing something along his house and he started to feel lightheaded. States that when he sat down he felt like his blood pressure was low so he put his feet up and did feel somewhat better. However patient did decide to be evaluated in the emergency department. Apparently patient had about 5 minutes of chest discomfort while here and had some aching pain before being seen. This resolved before he was seen. Patient had a heart cath 2 years ago where he received 3 stents. Patient denies any chest pain whatsoever at this time. No shortness of breath.Patient has no other complaints at this time including shortness of breath, abdominal pain, nausea or vomiting, headache, or visual changes. (Will Parker) - Related Data Home Medications Medication Instructions Recorded Confirmed Aspirin 81 mg PO HS 12/26/14 08/10/18 Effie-3 Fatty Acids/Fish Oil [Fish 1 cap PO DAILY 04/16/16 08/10/18 Oil 1,000 mg Softgel] Levothyroxine Sodium [Synthroid] 75 mcg PO DAILY 08/10/18 08/10/18 Losartan Potassium 50 mg PO DAILY 08/10/18 08/10/18 Magnesium 200 mg PO DAILY 08/10/18 08/10/18 Rosuvastatin [Crestor] 20 mg PO HS 08/10/18 08/10/18 Ubidecarenone [Co Q-10] 300 mg PO HS 08/10/18 08/10/18 Vitamin E (Dl,Tocopheryl Acet) 400 unit PO DAILY 08/10/18 08/10/18 [Vitamin E] Allergies Allergy/AdvReac Type Severity Reaction Status Date / Time Penicillins Allergy Rash/Hives Verified 08/10/18 14:01 Review of Systems ROS Other: All systems not noted in ROS Statement are negative. <Will Parker - Last Filed: 08/10/18 16:53> ROS Other: All systems not noted in ROS Statement are negative. <Red Dorman - Last Filed: 08/10/18 17:01> ROS Statement: Those systems with pertinent positive or pertinent negative responses have been documented in the HPI. Past Medical History Past Medical History: Coronary Artery Disease (CAD), Chest Pain / Angina, Eye Disorder, Hyperlipidemia, Thyroid Disorder Additional Past Medical History / Comment(s): Past glaucoma L eye but sx corrected. hard of hearing- wears aids History of Any Multi-Drug Resistant Organisms: None Reported Past Surgical History: Adenoidectomy, Back Surgery, Cholecystectomy, Coronary Bypass/CABG, Heart Catheterization With Stent, Hernia Repair, Orthopedic Surgery, Tonsillectomy Additional Past Surgical History / Comment(s): 12/2014 PCI with stent, 2008 PCI with stent, 1998 CABG-1 vessel, back x 2, bone removed from left hip-placed in neck, bilateral cataracts removal and procedure to L eye for glaucoma, L inguinal hernia repair, colonoscopy. Past Anesthesia/Blood Transfusion Reactions: No Reported Reaction Date of Last Stent Placement:: 2014 Past Psychological History: Anxiety Smoking Status: Former smoker Past Alcohol Use History: None Reported Past Drug Use History: None Reported - Past Family History Father Additional Family Medical History / Comment(s): Father of a brain tumor at the age of 56yrs. Unknown if it was cancerous. Mother Family Medical History: Cancer Additional Family Medical History / Comment(s): Mother had colon cancer removed with surgery. She lived to be 83 or 84yrs old. Brother(s) Family Medical History: Cancer Sister(s) Family Medical History: Cancer, Deep Vein Thrombosis (DVT) <Will Parker - Last Filed: 08/10/18 16:53> General Exam Limitations: no limitations General appearance: alert, in no apparent distress Head exam: Present: atraumatic, normocephalic, normal inspection Eye exam: Present: normal appearance, PERRL, EOMI. Absent: scleral icterus, conjunctival injection, periorbital swelling ENT exam: Present: normal exam, mucous membranes moist Neck exam: Present: normal inspection, full ROM. Absent: tenderness, meningismus, lymphadenopathy Respiratory exam: Present: normal lung sounds bilaterally. Absent: respiratory distress, wheezes, rales, rhonchi, stridor Cardiovascular Exam: Present: regular rate, normal rhythm, normal heart sounds. Absent: systolic murmur, diastolic murmur, rubs, gallop, clicks Neurological exam: Present: alert, oriented X3, CN II-XII intact, normal gait, other (GCS 15) Expanded Patient oriented to: Present: person, place, time Speech: Present: fluid speech Cranial nerves: EOM's Intact: Normal, Tongue Deviation: Normal, Nystagmus: Normal, Facial Sensation: Normal Cerebellar function: Finger to Nose: Normal Upper motor neuron: Pronator Drift: Normal Sensory exam: Upper Extremity Light Touch: Normal, Upper Extremity Pin Prick: Normal, Lower Extremity Light Touch: Normal, Lower Extremity Pin Prick: Normal Motor strength exam: RUE: 5, LUE: 5, RLE: 5, LLE: 5 Eye Response: (4) open spontaneously Motor Response: (6) obeys commands Verbal Response: (5) oriented [place] Total: 15 Psychiatric exam: Present: normal affect, normal mood <Will Parker P - Last Filed: 08/10/18 16:53> Course Vital Signs 08/10/18 08/10/18 08/10/18 12:32 14:39 15:36 Temperature 97.9 F 97.3 F L Pulse Rate 61 51 L Pulse Rate [ 51 L Sitting] Pulse Rate [ 53 L Standing] Pulse Rate [ 50 L Supine] Respiratory 18 17 19 Rate Blood Pressure 134/69 140/68 Blood Pressure 133/60 [Sitting] Blood Pressure 124/61 [Standing] Blood Pressure 127/63 [Supine] O2 Sat by Pulse 96 93 L 96 Oximetry EKG Findings - EKG Comments: EKG Findings:: Sinus bradycardia, ventricular rate 59, [place] interval 202, QTC 427, occasional PVC <Will Parker P - Last Filed: 08/10/18 16:53> Medical Decision Making - Lab Data Result diagrams: 08/10/18 13:30 08/10/18 13:30 <Will Parker P - Last Filed: 08/10/18 16:53> - Lab Data Result diagrams: 08/10/18 13:30 08/10/18 13:30 <Red Dorman - Last Filed: 08/10/18 17:01> - Medical Decision Making 88-year-old male presents to the emergency department for a chief complaint of lightheadedness. Patient states this has been ongoing for several weeks, possibly months. Patient also had about 5 minutes of chest discomfort that resolved before being seen. EKG is unremarkable. Patient does have some PVCs noted. Patient has a heart rate in the 50s which is his normal. Blood pressure is in normal limits. Patient well-appearing, exam is unremarkable. CBC and CMP are unremarkable. Troponin negative. Chest x-ray did show bilateral lower lobe atelectasis or infiltrate. Clinically no pneumonia present. On review of the x-ray this is unimpressive. CT brain showed degenerative and nonspecific white matter changes most likely basis of remote white matter ischemia. Remote right basilar ganglia lacunar infarct as well. She was evaluated by Dr. Dorman as well. Discussed case with Dr. Mccabe for possible addition, at this time he prefers to see patient in the office tomorrow. Patient agrees with this. (Will Parker) Patient reevaluated by myself, Dr. Dorman. Patient states he's been having some lightheadedness over the past couple of weeks, intermittently. Patient states he had some mild chest discomfort on arrival to the emergency department. Patient states it just lasted a couple minutes and has resolved and has been symptom-free since that time. Patient and family updated on results. Case was discussed in detail with Dr. Gonzales who is familiar with his patient. He does recommend discharge and will follow-up and recommends patient call tomorrow. (Red Dorman) - Lab Data Lab Results 08/10/18 08/10/18 08/10/18 Range/Units 13:30 13:30 13:30 WBC 8.0 (3.8-10.6) k/uL RBC 4.22 L (4.30-5.90) m/uL Hgb 13.0 (13.0-17.5) gm/dL Hct 40.6 (39.0-53.0) % MCV 96.2 (80.0-100.0) fL MCH 30.8 (25.0-35.0) pg MCHC 32.0 (31.0-37.0) g/dL RDW 14.1 (11.5-15.5) % Plt Count 190 (150-450) k/uL Neutrophils % 64 % Lymphocytes % 26 % Monocytes % 7 % Eosinophils % 1 % Basophils % 0 % Neutrophils # 5.1 (1.3-7.7) k/uL Lymphocytes # 2.1 (1.0-4.8) k/uL Monocytes # 0.6 (0-1.0) k/uL Eosinophils # 0.1 (0-0.7) k/uL Basophils # 0.0 (0-0.2) k/uL PT 10.1 (9.0-12.0) sec INR 0.9 (<1.2) APTT 23.2 (22.0-30.0) sec Sodium 139 (137-145) mmol/L Potassium 4.6 (3.5-5.1) mmol/L Chloride 106 (98-107) mmol/L Carbon Dioxide 25 (22-30) mmol/L Anion Gap 8 mmol/L BUN 19 (9-20) mg/dL Creatinine 1.07 (0.66-1.25) mg/dL Est GFR (CKD-EPI)AfAm 72 (>60 ml/min/1.73 sqM) Est GFR (CKD-EPI)NonAf 62 (>60 ml/min/1.73 sqM) Glucose 98 (74-99) mg/dL Calcium 9.8 (8.4-10.2) mg/dL Magnesium 2.3 (1.6-2.3) mg/dL Total Bilirubin 0.5 (0.2-1.3) mg/dL AST 26 (17-59) U/L ALT 28 (21-72) U/L Alkaline Phosphatase 50 (38-126) U/L Troponin I (0.000-0.034) ng/mL Total Protein 6.4 (6.3-8.2) g/dL Albumin 4.0 (3.5-5.0) g/dL 08/10/18 Range/Units 13:30 WBC (3.8-10.6) k/uL RBC (4.30-5.90) m/uL Hgb (13.0-17.5) gm/dL Hct (39.0-53.0) % MCV (80.0-100.0) fL MCH (25.0-35.0) pg MCHC (31.0-37.0) g/dL RDW (11.5-15.5) % Plt Count (150-450) k/uL Neutrophils % % Lymphocytes % % Monocytes % % Eosinophils % % Basophils % % Neutrophils # (1.3-7.7) k/uL Lymphocytes # (1.0-4.8) k/uL Monocytes # (0-1.0) k/uL Eosinophils # (0-0.7) k/uL Basophils # (0-0.2) k/uL PT (9.0-12.0) sec INR (<1.2) APTT (22.0-30.0) sec Sodium (137-145) mmol/L Potassium (3.5-5.1) mmol/L Chloride (98-107) mmol/L Carbon Dioxide (22-30) mmol/L Anion Gap mmol/L BUN (9-20) mg/dL Creatinine (0.66-1.25) mg/dL Est GFR (CKD-EPI)AfAm (>60 ml/min/1.73 sqM) Est GFR (CKD-EPI)NonAf (>60 ml/min/1.73 sqM) Glucose (74-99) mg/dL Calcium (8.4-10.2) mg/dL Magnesium (1.6-2.3) mg/dL Total Bilirubin (0.2-1.3) mg/dL AST (17-59) U/L ALT (21-72) U/L Alkaline Phosphatase (38-126) U/L Troponin I <0.012 (0.000-0.034) ng/mL Total Protein (6.3-8.2) g/dL Albumin (3.5-5.0) g/dL Disposition Is patient prescribed a controlled substance at d/c from ED?: No Time of Disposition: 16:58 <Will Parker - Last Filed: 08/10/18 16:53> <Red Dorman - Last Filed: 08/10/18 17:01> Clinical Impression: Lightheadedness Disposition: HOME SELF-CARE Condition: Good Instructions (If sedation given, give patient instructions): Lightheadedness (ED) Additional Instructions: Please follow-up with Dr. Dembrosky tomorrow morning. Please return here to the emergency department if you have any worsening symptoms. Referrals: Jarrett Mccabe MD [Primary Care Provider] - 1-2 days
[2018-08-10 14:04] LABS: Basophils % (A) 0 %; Eosinophils # (A) 0.1 k/uL (0-0.7); Eosinophils % (A) 1 %; HCT 40.6 % (39.0-53.0); Lymphocytes # (A) 2.1 k/uL (1.0-4.8); Lymphocytes % (A) 26 %; MCH 30.8 pg (25.0-35.0); MCV 96.2 fL (80.0-100.0); Mean Platelet Volume 7.3; Monocytes # (A) 0.6 k/uL (0-1.0); Monocytes % (A) 7 %; Neutrophils # (A) 5.1 k/uL (1.3-7.7); Neutrophils % (A) 64 %; Platelet Count 190 k/uL (150-450); RBC 4.22 m/uL (4.30-5.90); RDW 14.1 % (11.5-15.5)
[2018-08-10 14:11] LABS: INR 0.9 (<1.2); Partial Thromboplastin Time 23.2 sec (22.0-30.0); Prothrombin Time 10.1 sec (9.0-12.0)
[2018-08-10 14:15] LABS: Calcium 9.8 mg/dL (8.4-10.2); Magnesium 2.3 mg/dL (1.6-2.3); Potassium 4.6 mmol/L (3.5-5.1); Total Bilirubin 0.5 mg/dL (0.2-1.3); Total Protein 6.4 g/dL (6.3-8.2)
--- NOTE | 2018-08-10 14:16 | XR ---
EXAMINATION TYPE: XR chest 2V DATE OF EXAM: 08/10/2018 COMPARISON: 04/16/2016 TECHNIQUE: PA and lateral views submitted. HISTORY: Chest pain FINDINGS: Left-sided consolidation noted. No pleural effusion or pneumothorax. Hypertrophic and degenerative ch anges spine. Atherosclerotic change aorta. Subsegmental changes along the right lung base. IMPRESSION: 1. Bilateral lower lobe atelectasis or infiltrate.
--- NOTE | 2018-08-10 14:27 | CT ---
EXAMINATION TYPE: CT brain wo con DATE OF EXAM: 08/10/2018 COMPARISON: None HISTORY: Sharp pain in back of head followed by dizziness CT DLP: 1082.4 mGycm Automated exposure control for dose reduction was used. FINDINGS: Moderate to degenerative change with a greater frontal lobe component. Area of low attenuation involv ing the right basal ganglia suggestive of remote lacunar infarction. Low-attenuation the white matter is nonspecific. No acute hemorrhage or mass effect. Calvarium intact. Intracranial atherosclerotic c hanges noted. IMPRESSION: 1. DEGENERATIVE AND NONSPECIFIC WHITE MATTER CHANGES. MOST LIKELY IN THE BASIS OF REMOTE WHITE MATTER ISCHEMIA. NO ACUTE HEMORRHAGE. IF THERE IS CONCERN FOR ACUTE ISCHEMIA CORRELATE WITH MRI CLINICAL LY WARRANTED. 2. REMOTE RIGHT BASAL GANGLIA LACUNAR INFARCT.
[2018-08-10 17:26] VITALS: BP 149/79; PULSE 52; RESP 18; TEMP 98.1
== END 2018-08-10 17:26 | disposition home or self-care (01) ==
LOC: EC 12:31
DX: R42 Dizziness and giddiness (principal); J98.11 Atelectasis; R93.89 Abnormal findings on diagnostic imaging of other specified body structures; R07.89 Other chest pain; I25.119 Atherosclerotic heart disease of native coronary artery with unspecified angina pectoris; E78.5 Hyperlipidemia, unspecified; E07.9 Disorder of thyroid, unspecified; Z87.891 Personal history of nicotine dependence; Z79.82 Long term (current) use of aspirin; Z79.890 Hormone replacement therapy; Z79.899 Other long term (current) drug therapy; Z88.0 Allergy status to penicillin; Z95.1 Presence of aortocoronary bypass graft; Z95.5 Presence of coronary angioplasty implant and graft
CPT/HCPCS: 36415; 70450; 71046; 80053; 83735; 84484; 85025; 85610; 85730; 93005; 96360; 99284

== ENCOUNTER → 2019-07-13 | Outpatient (CLI) | payer MEDICARE, BC | END | disposition home or self-care (01) | LOC: LABWHC1 09:11 | PROVIDERS: ATTEND Internal Medicine Interventional Cardiology | DX: U07.1 COVID-19 (principal) ==

== ENCOUNTER 2019-07-15 06:17 | Day surgery (SDC) | payer MEDICARE, BC ==
[~2019-07-15 06:17] MED LIST: ALPRAZolam 0.25 MG TAB PO PRN; ALPRAZolam 0.5 MG TAB PO PRN; ASPIRIN 325 MG TAB PO STA; ATORVASTATIN 80 MG TAB PO STA; NITROGLYCERIN SL TABS 0.4 MG TAB SUBLINGUAL PRN; SODIUM CHLORIDE 0.9% 1,000 ML in EMPTY BAG 1 BAG IV ONE
[2019-07-15] MEDS ORDERED: SODIUM CHLORIDE 0.9% 1,000 ML IV ONE (07:05)
[2019-07-15 07:09] LABS: Basophils % (A) 0 %; Eosinophils # (A) 0.2 k/uL (0-0.7); Eosinophils % (A) 1 %; HCT 42.5 % (39.0-53.0); HGB 13.6 gm/dL (13.0-17.5); Lymphocytes % (A) 16 %; MCH 30.5 pg (25.0-35.0); MCHC 31.9 g/dL (31.0-37.0); MCV 95.8 fL (80.0-100.0); Mean Platelet Volume 7.3; Monocytes # (A) 0.8 k/uL (0-1.0); Monocytes % (A) 7 %; Neutrophils % (A) 73 %; Platelet Count 202 k/uL (150-450); RBC 4.44 m/uL (4.30-5.90); WBC 12.4 k/uL (3.8-10.6)
[2019-07-15 07:17] LABS: Calcium 9.5 mg/dL (8.4-10.2); Potassium 4.2 mmol/L (3.5-5.1)
[2019-07-15] MEDS ORDERED: LIDOCAINE 1% INJ 10MG/ML (20 ML MDV) ONE (07:25)
[2019-07-15] MEDS ORDERED: fentaNYL (PF) 50 MCG/ML 2 ML AMP ONE (07:25)
[2019-07-15] MEDS ORDERED: fentaNYL (PF) 50 MCG/ML 2 ML AMP IVP ONE (08:49)
[2019-07-15] MEDS ORDERED: LIDOCAINE 1% INJ 10MG/ML (20 ML MDV) SQ ONE (08:52)
[2019-07-15] MEDS ORDERED: BIVALIRUDIN BOLUS 250 MG/50 ML IV ONE (09:05)
[2019-07-15] MEDS ORDERED: CLOPIDOGREL 75 MG TAB ONE (09:07)
[2019-07-15] MEDS ORDERED: BIVALIRUDIN 250 MG in SODIUM CHLORIDE 0.9% 50 ML IV ONE (09:10)
[2019-07-15] MEDS ORDERED: CLOPIDOGREL 75 MG TAB PO ONE (09:10)
[2019-07-15] MEDS ORDERED: NITROGLYCERIN 1000MCG/10ML SYRINGE INTRACORON ONE (09:19)
[2019-07-15] MEDS ORDERED: IOPAMIDOL-370 125ML BTL INJ ONE ×2 (09:19→09:49)
[2019-07-15] MEDS ORDERED: MAG HYDROX/AL HYDROX/SIMETH 30 ML CUP PO PRN (09:46)
[2019-07-15] MEDS ORDERED: ATROPINE SULFATE 0.1 MG/ML 10ML SYRINGE IV PRN (09:46)
[2019-07-15] MEDS ORDERED: ZOLPIDEM 5 MG TAB PO PRN (09:46)
[2019-07-15] MEDS ORDERED: NITROGLYCERIN SL TABS 0.4 MG TAB SUBLINGUAL PRN (09:46)
[2019-07-15] MEDS ORDERED: RX INFO: IV CONTRAST WAS GIVEN 1 EACH MISC MISCELLANE PRN (09:46)
[2019-07-15] MEDS ORDERED: SODIUM CHLORIDE 0.9% 1,000 ML IV SCH (10:00)
--- NOTE | 2019-07-15 10:52 | PTCA ---
PERCUTANEOUSTRANS CORORONARY ANGIOGRAPHY Mr. Hopper is an 89-year-old male with a known history of coronary artery disease who presented with symptoms of unstable angina, underwent cardiac catheterization, was found to have significant stenosis in the RCA. In view of that, recommendation made regarding coronary angioplasty and stenting. The procedures, risks, and complication were discussed with the patient who is in full understanding and agreement. PROCEDURE: A 6-Citizen [place] FR4 guiding catheter introduced into the system after cannulating the right coronary ostium, a 0.014 balanced medium weight J-wire was advanced across the lesion, positioned distally. Then another 0.014 balanced medium weight J-wire was advanced next to the first one in a mike fashion and positioned distally, subsequently 2.5 x 12 mm Trek balloon was advanced and inflation in both lesions were done at maximum of 8 atmospheres. Following that, the balloon was removed and a 2.5 x 15 mm Xience Mary Beth stent was deployed in the mid distal segment and postdilated at 16 atmospheres. After removing the balloon, a 2.75 x 15 mm Xience Mary Beth stent was deployed in the proximal mid segment and postdilated at 16 atmospheres. After the last inflation, after appropriate wait, the balloon and the guidewire were withdrawn back in the guiding catheter. Images were obtained and repeated. Those images reveal stable successful stenting. At that point, the guiding catheter, the balloon and the guidewire were removed. The sheath was removed. Hemostasis was obtained. Following the Angio-Seal, there was no immediate complication. Patient is returned to his room in stable condition. Of note, the patient had chest discomfort with the inflation that resolved in the procedure. Received Angiomax per protocol as well as oral loading dose of clopidogrel. RESULTS: Successful stenting of the proximal mid right coronary artery and the mid distal right coronary artery with reduction of stenosis from 80% to 0%. RECOMMENDATION: Patient to continue on aspirin, Plavix and statin. The importance of dual antiplatelet treatment were discussed with the patient his family and they are in full understanding and agreement. Duration of procedure is 44 minutes. MMODL / IJN: [id number] /
--- NOTE | 2019-07-15 10:52 | CC ---
CARDIAC CATHETERIZATION REPORT Mr. Hopper is an 89-year-old male with a known history of coronary artery disease, status post coronary artery bypass grafting and percutaneous revascularization who has been complaining of progressive symptoms of angina pectoris, initially maximizing medical therapy was recommended, but the patient persisted in having symptoms. In view of that, recommendation made regarding cardiac catheterization. The procedures, risks, and complication were discussed with the patient who is in full understanding and agreement. PROCEDURE: Patient was brought to the laborer pole crew in a fasting semi-sedated state after receiving fentanyl and Benadryl and achieving moderate conscious sedated state. Using Xylocaine anesthesia and Seldinger technique, a 6-[place] sheath was introduced in the right femoral artery. Selective right and left coronary angiography performed using 5-[place] 3.5 bend right and left Sima catheter, multiple views of the coronary artery including hemiaxial views obtained. Following that, the 6-[place] right Sima was used to cannulate the TROTTER to LAD. Images of the grafts were obtained. Following that, catheter removed, images were reviewed. LEFT MAIN: This is a large-sized vessel, bifurcating into left circumflex, left anterior descending artery. Left main coronary artery has no evidence of high-grade stenosis. LEFT ANTERIOR DESCENDING ARTERY: This vessel gives rise to a proximal diagonal branch. Following that, the vessel is totally occluded with no antegrade flow. LEFT CIRCUMFLEX: This is a large nondominant vessel, giving rise to 2 obtuse marginal branches. The stented segment in the LAD are patent with no evidence of in-stent restenosis. There is a distal branch that has a 70% stenosis at the takeoff, but it is small in caliber. RIGHT CORONARY ARTERY: This is a dominant vessel, moderate in caliber, bifurcating distally into PDA and posterolateral segment and branches, calcified. The stented segment in the proximal right coronary artery has no evidence of in-stent restenosis. The ostium has a 30% to 40% plaque in the proximal mid segment. There is an 80% stenosis in the mid distal segment. There is another 80% stenosis. The rest of the vessel has no high-grade stenosis. TROTTER TO LAD: The distal anastomotic site is patent. There is no evidence of significant obstructive disease. LEFT VENTRICULOGRAM: Left ventriculogram was not performed. CONCLUSION: 1. Totally occluded left anterior descending artery with patent TROTTER to LAD. 2. Significant stenosis in the proximal mid segment of the RCA and the mid distal segment of the RCA. 3. Patent stent to the left circumflex and proximal RCA. RECOMMENDATION: In view of finding anatomy, I recommend proceeding with angioplasty and stenting. The procedures, risks, and complication were discussed with the patient who is in full understanding and agreement. MMJACOB / FARTUN: [id number] /
--- NOTE | 2019-07-15 10:55 | LTR ---
DATE OF SERVICE: 07/15/2019 RE: Celio Hopper Dear Dr. Goins; I had the pleasure to perform cardiac catheterization, coronary angioplasty and stenting on Mr. Hopper at [facility] on July 15, 2019 and a full copy of the procedure note will be forwarded to you. In brief, he underwent successful stenting of his right coronary artery in two different segments. I am hopeful that this procedure will stabilize his status and thank you again for allowing me to participate in this patient's care. Please feel free to call for any questions. Sincerely yours, Yazan Flores MD MMCODYL / CISCON: [id number] /
[2019-07-15 10:59] VITALS: BMI 27.6
[2019-07-15] MEDS ORDERED: ATENOLOL 25 MG TAB PO SCH (21:00)
[2019-07-15] MEDS ORDERED: ATORVASTATIN 40 MG TAB PO SCH (21:00)
[2019-07-16 00:29] VITALS: RESP 16
[2019-07-16 04:29] VITALS: BP 147/81; PULSE 58; TEMP 98.4
[2019-07-16] MEDS ORDERED: LEVOTHYROXINE 75 MCG TAB PO SCH (06:30)
[2019-07-16 07:21] LABS: Calcium 9.2 mg/dL (8.4-10.2); Potassium 4.8 mmol/L (3.5-5.1)
[2019-07-16] MEDS ORDERED: LOSARTAN 50 MG TAB PO SCH (09:00)
[2019-07-16] MEDS ORDERED: CLOPIDOGREL 75 MG TAB PO SCH (09:00)
[2019-07-16] MEDS ORDERED: ASPIRIN 81 MG PO SCH (09:00)
--- NOTE | 2019-07-16 09:14 | PN ---
PROGRESS NOTE Mr. Hopper is an 89-year-old male with known history of coronary artery disease, status post coronary artery bypass grafting and percutaneous revascularization who presented with symptoms of worsening angina pectoris, underwent cardiac catheterization, was found to have critical stenosis involving the right coronary artery in 2 segments. He underwent stenting of that vessel. He is doing well this morning. His breathing is stable. He denies any chest pain. No dizziness or palpitations. He continues to be on aspirin once a day, Plavix 75 mg daily, Lipitor 40 mg daily, atenolol 25 mg daily, levothyroxine 0.075 mg daily, losartan 50 mg daily. PHYSICAL EXAMINATION: Blood pressure running in the 140s with a heart rate in the 50s. LUNGS: Clear. HEART: Regular rate and rhythm, S1, S2. No S3 with systolic ejection murmur heard at the base. No diastolic murmur, no rub. ABDOMEN: Soft, nontender. EXTREMITIES: No edema. Right groin, no hematoma. LAB DATA: Revealed BUN and creatinine 16 and 0.88, potassium 4.8. EKG revealed sinus mechanism with no acute changes. IMPRESSION: 1. Status post stenting of the right coronary artery. 2. Status post coronary artery bypass grafting. 3. Hypertension. 4. Hyperlipidemia. RECOMMENDATION: Patient will be discharged home today and followed as an outpatient. MMODL / CISCON: [id number] /
== END 2019-07-16 09:32 | disposition home or self-care (01) ==
LOC: CATHCVL 06:17 → 3SCARD 09:33 → CATHCVL 07-16 09:32
PROVIDERS: ATTEND Internal Medicine Interventional Cardiology
DX: I25.110 Atherosclerotic heart disease of native coronary artery with unstable angina pectoris (principal); I25.82 Chronic total occlusion of coronary artery; I10 Essential (primary) hypertension; E78.2 Mixed hyperlipidemia; Z95.5 Presence of coronary angioplasty implant and graft; Z95.1 Presence of aortocoronary bypass graft; Z79.82 Long term (current) use of aspirin; Z79.02 Long term (current) use of antithrombotics/antiplatelets; Z79.890 Hormone replacement therapy; Z79.899 Other long term (current) drug therapy; Z88.0 Allergy status to penicillin; Z90.49 Acquired absence of other specified parts of digestive tract; Z98.890 Other specified postprocedural states; Z87.891 Personal history of nicotine dependence
CPT/HCPCS: 93455; 85347; 80048 ×2; 85025; C9600; C1769 ×2; C1760; C1887; C1725; C1874; J2001; J3010; J0583; Q9967

== ENCOUNTER → 2019-10-19 | Outpatient (CLI) | payer MEDICARE, BC ==
[2019-10-19 11:00] LABS: Chol/HDL Ratio 2.83; LDL Cholesterol,Calculated 63.6 mg/dL (0.0-131.0); VLDL Calculation 20.4 mg/dL (5.00-40.00)
== END ==
LOC: LABWHC1 07:04
PROVIDERS: ATTEND Internal Medicine Interventional Cardiology
DX: E78.2 Mixed hyperlipidemia (principal)
CPT/HCPCS: 36415; 80061; 84450; 84460

== ENCOUNTER → 2020-01-12 | Outpatient (CLI) | payer MEDICARE, BC ==
--- NOTE | 2020-01-12 12:52 | CT ---
EXAMINATION TYPE: CT abdomen wo con DATE OF EXAM: 01/12/2020 COMPARISON: CT chest 04/16/2016 HISTORY: 89-year-old male Generalized pain TECHNIQUE: Contiguous axial scanning of the abdomen without IV contrast. Coronal and sagittal reconst ructions performed. CT DLP: 508.3 mGycm Automated exposure control for dose reduction was used. FINDINGS: Heart normal size without pericardial effusion. Three-vessel coronary artery calcifications are prese nt as well as moderate aortic valvular calcifications. Normal variant sternal foramen. Patchy atelectasis or scar with corresponding volume loss at the right base. 4 mm right middle lobe p ulmonary nodule, unchanged from 2017, benign. Continued asymmetric elevation right hemidiaphragm. Scattered hepatic hypodensities, largest in the periphery of the right liver lobe measuring 1.8 cm. A s these were present back in 2017, benign cysts are suspected. A couple of these may be minimally lar jerson. There may have been prior partial hepatectomy changes. Cholecystectomy clips are also present. Small 2.9 cm diverticulum of the second portion of the duodenum redemonstrated. Adrenal glands, spleen, and pancreas show no gross abnormality by limited, noncontrast CT. Bilateral perinephric edema could represent senescent change or chronic kidney disease. No dilated small bowel, free fluid, or free air. No mesenteric or retroperitoneal lymphadenopathy. Scattered mild to moderate stool burden. Diverticulosis within the visualized sigmoid colon. There is some fat stranding/edema along the visualized left upper pelvis and some additional strandy densities throughout the remaining intra-abdominal fat. Moderate atherosclerotic calcifications and plaque throughout the abdominal aorta and visualized adama c arteries. 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 The pelvis is not imaged. Bones: Bony deformity along the anterior left iliac wing could be posttraumatic or postsurgical. Lami nectomy change in the mid to lower lumbar spine. Hypertrophic facet arthropathy throughout with moder ate multilevel degenerative disc disease. Grade 1, nearly grade 2 anterolisthesis at L3-L4. IMPRESSION: 1. SOME MILD GENERALIZED EDEMA/FAT STRANDING THROUGHOUT THE INTRA-ABDOMINAL FAT. CORRELATE FOR ANY SI GNS OF THIRD SPACING/MILD ANASARCA. 2. THERE IS SIGMOID DIVERTICULOSIS PARTIALLY SEEN. THE PELVIS IS NOT IMAGED ON THIS ABDOMINAL EXAM. S OME FAT STRANDING APPEARS MORE LOCALIZED ALONG THE UPPER LEFT PELVIS. IF THERE IS ACUTE PAIN LOCALIZI NG TO THE LOWER ABDOMEN OR PELVIS, FURTHER CLINICAL CORRELATION CAN BE MADE FOR ANY SUSPECTED ACUTE D IVERTICULITIS OUTSIDE THE FIELD OF VIEW. 3. MODERATE ATHEROSCLEROTIC CHANGES WITHIN THE AORTA AND VISUALIZED ILIAC ARTERIES WITH FUSIFORM AAA MEASURING 4.2 CM. 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 APPROPRIATE SURVE ILLANCE/MANAGEMENT RECOMMENDED.
== END | disposition home or self-care (01) ==
LOC: RADCTMAIN 10:31
PROVIDERS: ATTEND Family Medicine
DX: K57.30 Diverticulosis of large intestine without perforation or abscess without bleeding (principal); I71.4 Abdominal aortic aneurysm, without rupture; R93.41 Abnormal radiologic findings on diagnostic imaging of renal pelvis, ureter, or bladder; Z88.0 Allergy status to penicillin
CPT/HCPCS: 74150

== ENCOUNTER 2020-01-21 08:11 | Day surgery (SDC) | payer MEDICARE, BC ==
[2020-01-19 13:29] VITALS: BMI 25.9
[~2020-01-21 08:11] MED LIST changes: -ALPRAZolam 0.25 MG TAB PO PRN; -ALPRAZolam 0.5 MG TAB PO PRN; -ASPIRIN 325 MG TAB PO STA; -ATORVASTATIN 80 MG TAB PO STA; +LACTATED RINGERS 1,000 ML IV SCH; -NITROGLYCERIN SL TABS 0.4 MG TAB SUBLINGUAL PRN; -SODIUM CHLORIDE 0.9% 1,000 ML in EMPTY BAG 1 BAG IV ONE
[2020-01-21 08:43] VITALS: TEMP 98.2
[2020-01-21] MEDS ORDERED: LIDOCAINE 1% (10MG/ML) FOR IV START INTRADERMA ONE (08:50)
[2020-01-21] MEDS ORDERED: PROPOFOL 10 MG/ML 20 ML VIAL IV ONE (08:58)
[2020-01-21] MEDS ORDERED: LIDOCAINE 1% INJ 10MG/ML (20 ML MDV) ONE (08:58)
[2020-01-21 10:03] VITALS: BP 119/66; PULSE 73; RESP 16
--- NOTE | 2020-01-21 10:28 | P.PCN ---
Date of Procedure: 01/21/20 Preoperative Diagnosis: Anemia Postoperative Diagnosis: Gastritis Duodenitis Cecal polyp Transverse colon mass Procedure(s) Performed: EGD with biopsy Colonoscopy with polypectomy, biopsy of mass, tattoo Anesthesia: MAC Surgeon: Michelle Conrad Pathology: other (Biopsies of duodenum, antrum, esophagus. Biopsy of transverse colon mass) Condition: stable Disposition: same day Indications for Procedure: 89-year-old male with recent finding of anemia and feeling of fatigue. Secondary to this, decision is made for GI workup. Upper and lower endoscopy are plan. Patient was excellent the risks, benefits and alternatives to the procedure did provide consent prior to attending the endoscopy suite. Operative Findings: Gastritis Duodenitis Transverse colon mass Cecal polyp Description of Procedure: The patient was brought into the endoscopy suite. He was then placed in left lateral decubitus position and adequate sedation was achieved using conscious sedation. Bite-block was placed in an endoscope was placed in the oropharynx and advanced under endoscopic visualization. The endoscope was advanced through the esophagus into the stomach, through the gastric antrum and into the pylorus. The third portion of the duodenum was visualized. Inflammatory changes were noted. Biopsies were taken. The endoscope was then slowly withdrawn. The antrum was noted to have inflammatory changes. Biopsies were taken. The gastric body distended normally gastric folds appeared normal and flattened with insufflation. A retroflexed view of the fundus and GE junction revealed no significant hiatal hernia. The esophagus appeared endoscopically normal. Biopsies were taken. Excess air was removed and the scope was withdrawn. A digital rectal exam was performed and mild internal hemorrhoids were palpated. An endoscope was then placed in the rectum and advanced to the cecum as identified by landmarks including the appendiceal orifice and the ileocecal valve. The prep was good. The colonoscope was then slowly withdrawn, examining for any mucosal abnormalities. The cecum, ascending, transverse, descending and sigmoid colon were visualized adequately. A small cecal polyp was noted and this was removed with forceps polypectomy. In the transverse colon, a sizable transverse colon mass was noted. This was extremely friable. This was unable to be removed with polypectomy and multiple biopsies were taken. The area around this area was tattooed. This was approximately 60 cm from the anus. Significant amount diverticulosis was noted throughout the sigmoid colon. Retroflexion was performed in the rectum and mild internal hemorrhoids were visible. Excess air was removed, the colonoscope withdrawn and the procedure terminated. The patient was then transferred to the recovery unit in stable condition. Repeat colonoscopy should be performed based on further workup for this transverse colon mass.
--- NOTE | 2020-01-25 08:19 | CDI ---
Outpatient Documentation Clarification Form Date: 01/25/20 CDS/[employer] Superintendent Name: Phone: If any questions, call Jacquie Mena Air Analysis Technician at [phone] Patient Name: Celio Hopper Admit Date: 01/21/20 Discharge Date: 01/21/20 ATTENTION: The [facility] Coding Staff appreciate your assistance in clarifying documentation. Please respond to the clarification below the line at the bottom and electronically sign. The [facility] Coding staff will review the response and follow-up if needed. Please note: Queries are made part of the Legal Health Record. If you have any questions, please contact the Air Analysis Technician. Dear Dr. Conrad, Please provide clarification as to the method of polypectomy that was used on the transverse colon mass. Please specify one of the following: Colonoscopy snare polypectomy forceps polypectomy Attempt at snare polypectomy for biopsy MTDD
== END 2020-01-21 10:45 | disposition home or self-care (01) ==
LOC: ORWHC2ENDO 08:11
PROVIDERS: ATTEND Surgery
DX: K29.50 Unspecified chronic gastritis without bleeding (principal); D12.3 Benign neoplasm of transverse colon; D12.0 Benign neoplasm of cecum; K29.80 Duodenitis without bleeding; K64.8 Other hemorrhoids; D50.9 Iron deficiency anemia, unspecified; K57.30 Diverticulosis of large intestine without perforation or abscess without bleeding; M19.90 Unspecified osteoarthritis, unspecified site; I25.10 Atherosclerotic heart disease of native coronary artery without angina pectoris; I10 Essential (primary) hypertension; E78.5 Hyperlipidemia, unspecified; I72.9 Aneurysm of unspecified site; E78.00 Pure hypercholesterolemia, unspecified; R01.1 Cardiac murmur, unspecified; E07.9 Disorder of thyroid, unspecified; Z95.5 Presence of coronary angioplasty implant and graft; Z90.49 Acquired absence of other specified parts of digestive tract; Z98.49 Cataract extraction status, unspecified eye; Z98.890 Other specified postprocedural states; Z79.02 Long term (current) use of antithrombotics/antiplatelets; Z79.82 Long term (current) use of aspirin; Z79.890 Hormone replacement therapy; Z79.899 Other long term (current) drug therapy; Z88.0 Allergy status to penicillin
CPT/HCPCS: 88305; 45380; 43239; 45381; J2001; J2704; 44404; 45385

== ENCOUNTER 2020-02-01 20:53 | Inpatient (IN) | payer MEDICARE, BC ==
[2020-02-01] MEDS ORDERED: SODIUM CHLORIDE 0.9% 500 ML 500 ML IV STA (21:03)
--- NOTE | 2020-02-01 21:47 | ED ---
General Adult HPI - General Chief complaint: GI Bleed Stated complaint: Syncope, GI bleed Time Seen by Provider: 02/01/20 20:55 Source: patient, EMS Mode of arrival: EMS Limitations: no limitations - History of Present Illness Initial comments: Patient is a 89-year-old male past history of coronary artery disease who presents emergency Department with reported rectal bleeding. He has a history of anemia. Colonoscopy was performed on the by Dr. Conrad. That time he had biopsies taken. Patient states he's been doing well at home up until tonigh t. States that he didn't feel well. Went to the bathroom a large amount of bright red blood in the toilet bowl. He felt as if he is given a passout. States he stood up, fell and hit his head on the bathtub. He denies losing consciousness. EMS was called by his . He does take Plavix. Patient denies previous history of rectal bleeding. No fevers or chills. Denies any nausea or vomiting. No hematemesis. Patient denies any headache, neck pain, unilateral numbness or weakness. No other alleviating, bar pilot modifying factors - Related Data Home Medications Medication Instructions Recorded Confirmed Aspirin 81 mg PO HS 12/26/14 02/01/20 [place]-3 Fatty Acids/Fish Oil [Fish 1 cap PO DAILY 04/16/16 02/01/20 Oil 1,000 mg Softgel] Levothyroxine Sodium [Synthroid] 75 mcg PO DAILY 08/10/18 02/01/20 Losartan Potassium 50 mg PO DAILY 08/10/18 02/01/20 Rosuvastatin [Crestor] 20 mg PO HS 08/10/18 02/01/20 Multivitamins, Thera [Multivitamin 1 tab PO DAILY 07/14/19 02/01/20 (formulary)] Ubidecarenone [Co Q-10] 200 mg PO HS 07/14/19 02/01/20 Vitamin C(Dose Unknown) 1 tab PO DAILY 07/14/19 02/01/20 atenoloL [Tenormin] 25 mg PO HS 07/14/19 02/01/20 Ferrous Sulfate [Iron (65 MG 325 mg PO DAILY 01/19/20 02/01/20 Elemental)] Previous Rx's Medication Instructions Recorded Clopidogrel [Plavix] 75 mg PO DAILY #90 tab 07/16/19 Nitroglycerin Sl Tabs [Nitrostat] 0.4 mg SUBLINGUAL Q5M PRN #25 tab 07/16/19 Allergies Allergy/AdvReac Type Severity Reaction Status Date / Time Penicillins Allergy Rash/Hives Verified 02/01/20 21:51 Review of Systems ROS Statement: Those systems with pertinent positive or pertinent negative responses have been documented in the HPI. ROS Other: All systems not noted in ROS Statement are negative. Past Medical History Past Medical History: Coronary Artery Disease (CAD), Chest Pain / Angina, Eye Disorder, Hyperlipidemia, Thyroid Disorder Additional Past Medical History / Comment(s): hx glaucoma L eye previously before cataract surgery, cataract surgery,implants, anemia, decrease appetite History of Any Multi-Drug Resistant Organisms: None Reported Past Surgical History: Adenoidectomy, Back Surgery, Cholecystectomy, Coronary B ypass/CABG, Heart Catheterization With Stent, Hernia Repair, Orthopedic Surgery, Tonsillectomy Additional Past Surgical History / Comment(s): 12/2014 PCI with stent, 2008 PCI with stent, 1998 CABG-1 vessel, back x 2, bone removed from left hip-placed in neck, bilateral cataracts removal and procedure to L eye for glaucoma, L inguinal hernia repair, colonoscopy. Past Anesthesia/Blood Transfusion Reactions: No Reported Reaction Date of Last Stent Placement:: 2014 Past Psychological History: Anxiety Smoking Status: Former smoker - Past Family History Father Family Medical History: Cancer Mother Family Medical History: Cancer Additional Family Medical History / Comment(s): Mother had colon cancer removed with surgery. She lived to be 83 or 84yrs old. Brother(s) Family Medical History: Cancer Sister(s) Family Medical History: Cancer, Deep Vein Thrombosis (DVT) General Exam Limitations: no limitations Course Vital Signs 02/01/20 20:56 Temperature 99.3 F Pulse Rate 91 Respiratory 18 Rate Blood Pressure 143/92 O2 Sat by Pulse 95 Oximetry EKG Findings - EKG Comments: EKG Findings:: EKG demonstrates sinus rhythm with rate of 93. IL interval 188. QRS 98. QTC 437. Frequently PVC. No acute ST segment elevation. Medical Decision Making - Medical Decision Making Upon arrival patient was placed into room 1. A through history and physical exam was performed. Patient has saturated his briefs with bright red blood. Vitals are stable. Rectal exam was performed. There is a small trace of bright red blood on my finger. 2 peripheral IVs are established here there are traces are conducted. Patient went for CT of his brain and cervical spine due to his fall with head injury. Laboratory studies demonstrated hemoglobin of 8.7. Previously measured at 8.9. Lactic acid is 4.2. Patient was given a 500 mL bolus of normal saline. Patient is have been screened. Results are discussed the patient. I also called and discussed case with Dr. Rowland. He does agree t o be on consult. We will trend the patient's hemoglobin. He does recommend that GI be placed on consult as well. I called and discussed the case with Dr. Sheikh. She recommends Ct abd/pelvis with contrast. Imaging is ordered. Patient remained in stable condition awaiting a bed - Lab Data Result diagrams: 02/01/20 21:39 02/01/20 21:39 Lab Results 02/01/20 02/01/20 02/01/20 Range/Units 21:39 21:39 21:39 WBC 12.8 H (3.8-10.6) k/uL RBC 3.19 L (4.30-5.90) m/uL Hgb 8.7 L (13.0-17.5) gm/dL Hct 27.2 L (39.0-53.0) % MCV 85.2 (80.0-100.0) fL MCH 27.3 (25.0-35.0) pg MCHC 32.1 (31.0-37.0) g/dL RDW 15.9 H (11.5-15.5) % Plt Count 315 (150-450) k/uL MPV 7.2 Neutrophils % 77 % Lymphocytes % 14 % Monocytes % 5 % Eosinophils % 0 % Basophils % 0 % Neutrophils # 9.8 H (1.3-7.7) k/uL Lymphocytes # 1.8 (1.0-4.8) k/uL Monocytes # 0.6 (0-1.0) k/uL Eosinophils # 0.0 (0-0.7) k/uL Basophils # 0.0 (0-0.2) k/uL PT 10.7 (9.0-12.0) sec INR 1.0 (<1.2) APTT 18.5 L (22.0-30.0) sec Sodium 129 L (137-145) mmol/L Potassium 4.7 (3.5-5.1) mmol/L Chloride 100 (98-107) mmol/L Carbon Dioxide 18 L (22-30) mmol/L Anion Gap 11 mmol/L BUN 22 H (9-20) mg/dL Creatinine 1.03 (0.66-1.25) mg/dL Est GFR (CKD-EPI)AfAm 74 (>60 ml/min/1.73 sqM) Est GFR (CKD-EPI)NonAf 64 (>60 ml/min/1.73 sqM) Glucose 142 H (74-99) mg/dL Plasma Lactic Acid Skyler (0.7-2.0) mmol/L Calcium 9.0 (8.4-10.2) mg/dL Total Bilirubin 0.4 (0.2-1.3) mg/dL AST 35 (17-59) U/L ALT 28 (4-49) U/L Alkaline Phosphatase 71 (38-126) U/L Troponin I (0.000-0.034) ng/mL Total Protein 5.9 L (6.3-8.2) g/dL Albumin 3.0 L (3.5-5.0) g/dL Blood Type Blood Type Recheck Bld Type Recheck Status Antibody Screen Spec Expiration Date 02/01/20 02/01/20 02/01/20 Range/Units 21:39 21:39 21:39 WBC (3.8-10.6) k/uL RBC (4.30-5.90) m/uL Hgb (13.0-17.5) gm/dL Hct (39.0-53.0) % MCV (80.0-100.0) fL MCH (25.0-35.0) pg MCHC (31.0-37.0) g/dL RDW (11.5-15.5) % Plt Count (150-450) k/uL MPV Neutrophils % % Lymphocytes % % Monocytes % % Eosinophils % % Basophils % % Neutrophils # (1.3-7.7) k/uL Lymphocytes # (1.0-4.8) k/uL Monocytes # (0-1.0) k/uL Eosinophils # (0-0.7) k/uL Basophils # (0-0.2) k/uL PT (9.0-12.0) sec INR (<1.2) APTT (22.0-30.0) sec Sodium (137-145) mmol/L Potassium (3.5-5.1) mmol/L Chloride (98-107) mmol/L Carbon Dioxide (22-30) mmol/L Anion Gap mmol/L BUN (9-20) mg/dL Creatinine (0.66-1.25) mg/dL Est GFR (CKD-EPI)AfAm (>60 ml/min/1.73 sqM) Est GFR (CKD-EPI)NonAf (>60 ml/min/1.73 sqM) Glucose (74-99) mg/dL Plasma Lactic Acid Skyler 4.2 H* (0.7-2.0) mmol/L Calcium (8.4-10.2) mg/dL Total Bilirubin (0.2-1.3) mg/dL AST (17-59) U/L ALT (4-49) U/L Alkaline Phosphatase (38-126) U/L Troponin I <0.012 (0.000-0.034) ng/mL Total Protein (6.3-8.2) g/dL Albumin (3.5-5.0) g/dL Blood Type O Negative Blood Type Recheck O Neg Bld Type Recheck Status No Antibody Screen NEGATIVE Spec Expiration Date 02/04/2020 - 2339 Disposition Clinical Impression: Hematochezia Disposition: ADMITTED IP TO THIS [facility] Condition: Serious Is patient prescribed a controlled substance at d/c from ED?: No Decision to Admit Reason: Admit from EC Decision Date: 02/01/20 Decision Time: 23:04
[2020-02-01 22:07] LABS: Potassium 4.7 mmol/L (3.5-5.1); Total Bilirubin 0.4 mg/dL (0.2-1.3); Total Protein 5.9 g/dL (6.3-8.2)
[2020-02-01 22:14] LABS: Prothrombin Time 10.7 sec (9.0-12.0)
[2020-02-01 22:16] LABS: Partial Thromboplastin Time 18.5 sec (22.0-30.0)
[2020-02-01 22:19] LABS: Basophils % (A) 0 %; Eosinophils % (A) 0 %; HCT 27.2 % (39.0-53.0); HGB 8.7 gm/dL (13.0-17.5); Lymphocytes # (A) 1.8 k/uL (1.0-4.8); Lymphocytes % (A) 14 %; MCH 27.3 pg (25.0-35.0); MCHC 32.1 g/dL (31.0-37.0); MCV 85.2 fL (80.0-100.0); Mean Platelet Volume 7.2; Monocytes # (A) 0.6 k/uL (0-1.0); Monocytes % (A) 5 %; Neutrophils # (A) 9.8 k/uL (1.3-7.7); Neutrophils % (A) 77 %; Platelet Count 315 k/uL (150-450); RBC 3.19 m/uL (4.30-5.90); RDW 15.9 % (11.5-15.5); WBC 12.8 k/uL (3.8-10.6)
--- NOTE | 2020-02-01 22:23 | CT ---
EXAMINATION TYPE: CT brain rinku palumbo DATE OF EXAM: 02/01/2020 COMPARISON: 08/10/2018 CT brain HISTORY: fall CT DLP: 1416.7 mGycm Automated exposure control for dose reduction was used. There is cerebral cortical atrophy. There is no mass effect nor midline shift. There is no sign of in tracranial hemorrhage. The calvarium is intact. There is multilevel fusion surgery from C4 to C6. There is mild hypertrophic facet arthropathy. There is moderately severe narrowing of L3-4 disc space. There is no compression fracture. There is multil evel moderately severe cervical bony spinal stenosis. IMPRESSION: Cerebral atrophy. No acute intracranial abnormality. No change. Spondylotic changes in the cervical spine. No fracture. Multilevel bony spinal stenosis.
[2020-02-01] MEDS ORDERED: NALOXONE 0.4 MG/ML 1 ML VIAL IV PRN (23:06)
[2020-02-01] MEDS ORDERED: IOPAMIDOL CONTRAST (ORAL USE) VIAL PO PRN (23:15)
[2020-02-02] MEDS: SODIUM CHLORIDE 0.9% 1,000 ML IV SCH ×2 (00:25→08:17)
--- NOTE | 2020-02-02 01:58 | CT ---
EXAM: CT Abdomen and Pelvis With Intravenous Contrast CLINICAL HISTORY: ITS.REASON CT Reason: hematochezia TECHNIQUE: Axial computed tomography images of the abdomen and pelvis with intravenous contrast. CTDI is 20.97 mGy and DLP is 1075.9 mGy-cm. This CT exam was performed using one or more of the following dose reduction techniques: automated exposure control, adjustment of the mA and/or kV according to patient size, and/or use of iterative reconstruction technique. COMPARISON: CT abdomen on 01/12/2020 FINDINGS: Lung bases: Right greater than left lower lung atelectasis. Heart: Small amount of pericardial fluid. ABDOMEN: Liver: Small hepatic cysts. Gallbladder and bile ducts: Prior cholecystectomy. No ductal dilation. Pancreas: Mild atrophy of the pancreas. No ductal dilation. Spleen: Unremarkable. No splenomegaly. Adrenals: Unremarkable. No mass. Kidneys and ureters: Nonspecific bilateral perinephric fat stranding. No hydronephrosis or obstructing stone. Stomach and bowel: Interposition of colon anterior to the liver. Diverticulosis without evidence of diverticulitis. No obstruction. PELVIS: Appendix: Normal appendix. Bladder: Mild prominence of the bladder wall is nonspecific. Please correlate with urinalysis if concerned for cystitis. Reproductive: Unremarkable as visualized. ABDOMEN and PELVIS: Intraperitoneal space: Unremarkable. No free air. No significant fluid collection. Bones/joints: Laminectomy changes of the lumbar spine. Degenerative changes of the spine. Grade 1 anterolisthesis of L3 on L4. No acute fracture. No dislocation. Soft tissues: Small fat-containing right inguinal hernia. Vasculature: Atherosclerotic changes of the vasculature. 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 No aortic dissection. 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 Lymph nodes: Unremarkable. No enlarged lymph nodes. Other findings: Elevation of the right hemidiaphragm. IMPRESSION: Mild prominence of the bladder wall is nonspecific. Please correlate with urinalysis if concerned for cystitis. No definite bowel obstruction or inflammation.
[2020-02-02 02:32] LABS: Anisocytosis Slight; HCT 22.3 % (39.0-53.0); Hypochromasia Slight; MCH 26.7 pg (25.0-35.0); MCHC 31.6 g/dL (31.0-37.0); MCV 84.5 fL (80.0-100.0); Mean Platelet Volume 8.2; Platelet Count 221 k/uL (150-450); RBC 2.64 m/uL (4.30-5.90); RDW 16.2 % (11.5-15.5); WBC 11.8 k/uL (3.8-10.6)
[2020-02-02 02:34] LABS: HGB 7.1 gm/dL (13.0-17.5)
[2020-02-02 08:23] LABS: Calcium 8.5 mg/dL (8.4-10.2); Potassium 4.4 mmol/L (3.5-5.1)
[2020-02-02 08:29] LABS: Anisocytosis Slight; HCT 21.2 % (39.0-53.0); MCHC 32.3 g/dL (31.0-37.0); MCV 83.7 fL (80.0-100.0); Mean Platelet Volume 6.8; Platelet Count 264 k/uL (150-450); RBC 2.53 m/uL (4.30-5.90); RDW 16.1 % (11.5-15.5); WBC 8.8 k/uL (3.8-10.6)
[2020-02-02 08:38] LABS: HGB 6.8 gm/dL (13.0-17.5)
[2020-02-02 09:51] LABS: Lymphocytes # (M) 1.41 k/uL (1.0-4.8); Monocytes # (M) 0.88 k/uL (0-1.0); Neutrophils # (M) 6.51 k/uL (1.3-7.7); Neutrophils % (M) 74 %; Nucleated Red Blood Cells 0 /100 WBC (0-0); Poikilocytosis (M) Present; Total Cells Counted 100
[2020-02-02] MEDS ORDERED: NITROGLYCERIN SL TABS 0.4 MG TAB SUBLINGUAL PRN (12:32)
--- NOTE | 2020-02-02 12:51 | P.GSCN ---
History of Present Illness Consult date: 02/02/20 History of present illness: This is an 89 year old male who recently had a colonoscopy with Dr. Conrad on the which showed a lesion with high grade dyspalsia which was too large to excise. Overnight last night patient was admitted to the [facility] secondary to GI bleeding and weakness. He had several episodes of blood bowl movements. He states that overnight and this AM he has not had any bloody BM. Vitals are stable. HgB 7.1 this AM. Past Medical History Past Medical History: Coronary Artery Disease (CAD), Chest Pain / Angina, Eye Disorder, Hyperlipidemia, Thyroid Disorder Additional Past Medical History / Comment(s): hx glaucoma L eye previously before cataract surgery, cataract surgery,implants, anemia, decrease appetite History of Any Multi-Drug Resistant Organisms: None Reported Past Surgical History: Adenoidectomy, Back Surgery, Cholecystectomy, Coronary Bypass/CABG, Heart Catheterization With Stent, Hernia Repair, Orthopedic Surge ry, Tonsillectomy Additional Past Surgical History / Comment(s): 12/2014 PCI with stent, 2008 PCI with stent, 1998 CABG-1 vessel, back x 2, bone removed from left hip-placed in neck, bilateral cataracts removal and procedure to L eye for glaucoma, L inguinal hernia repair, colonoscopy. Past Anesthesia/Blood Transfusion Reactions: No Reported Reaction Date of Last Stent Placement:: 2014 Past Psychological History: Anxiety Additional Psychological History / Comment(s): Pt states he lives with his Smoking Status: Former smoker Past Alcohol Use History: None Reported Additional Past Alcohol Use History / Comment(s): Pt started smoking in 1943 and quit in 1963. Past Drug Use History: None Reported - Past Family History Father Family Medical History: Cancer Mother Family Medical History: Cancer Additional Family Medical History / Comment(s): Mother had colon cancer removed with surgery. She lived to be 83 or 84yrs old. Brother(s) Family Medical History: Cancer Sister(s) Family Medical History: Cancer, Deep Vein Thrombosis (DVT) Medications and Allergies Home Medications Medication Instructions Recorded Confirmed Type Aspirin 81 mg PO HS 12/26/14 02/01/20 History [place]-3 Fatty Acids/Fish Oil [Fish 1 cap PO DAILY 04/16/16 02/01/20 History Oil 1,000 mg Softgel] Levothyroxine Sodium [Synthroid] 75 mcg PO DAILY 08/10/18 02/01/20 History Losartan Potassium 50 mg PO DAILY 08/10/18 02/01/20 History Rosuvastatin [Crestor] 20 mg PO HS 08/10/18 02/01/20 History Multivitamins, Thera [Multivitamin 1 tab PO DAILY 07/14/19 02/01/20 History (formulary)] Ubidecarenone [Co Q-10] 200 mg PO HS 07/14/19 02/01/20 History Vitamin C(Dose Unknown) 1 tab PO DAILY 07/14/19 02/01/20 History atenoloL [Tenormin] 25 mg PO HS 07/14/19 02/01/20 History Clopidogrel [Plavix] 75 mg PO DAILY #90 tab 07/16/19 02/01/20 Rx Nitroglycerin Sl Tabs [Nitrostat] 0.4 mg SUBLINGUAL Q5M PRN #25 tab 07/16/19 02/01/20 Rx Ferrous Sulfate [Iron (65 MG 325 mg PO DAILY 01/19/20 02/01/20 History Elemental)] Allergies Allergy/AdvReac Type Severity Reaction Status Date / Time Penicillins Allergy Rash/Hives Verified 02/01/20 21:51 Surgical - Exam Osteopathic Statement: *. No significant issues noted on an osteopathic structural exam other than those noted in the History and Physical/Consult. Vital Signs Temp Pulse Resp BP Pulse Ox 99.3 F 91 18 143/92 95 02/01/20 20:56 02/01/20 20:56 02/01/20 20:56 02/01/20 20:56 02/01/20 20:56 - General well developed, well nourished, no distress - Respiratory normal expansion, normal respiratory effort - Cardiovascular Rhythm: regular - Abdomen Abdomen: soft, non tender Results - Labs 02/02/20 07:28 02/02/20 07:28 Abnormal Lab Results - Last 24 Hours (Table) 02/01/20 02/01/20 02/01/20 Range/Units 21:39 21:39 21:39 WBC 12.8 H (3.8-10.6) k/uL RBC 3.19 L (4.30-5.90) m/uL Hgb 8.7 L (13.0-17.5) gm/dL Hct 27.2 L (39.0-53.0) % RDW 15.9 H (11.5-15.5) % Neutrophils # 9.8 H (1.3-7.7) k/uL APTT 18.5 L (22.0-30.0) sec Sodium 129 L (137-145) mmol/L Carbon Dioxide 18 L (22-30) mmol/L BUN 22 H (9-20) mg/dL Glucose 142 H (74-99) mg/dL Plasma Lactic Acid Skyler (0.7-2.0) mmol/L Total Protein 5.9 L (6.3-8.2) g/dL Albumin 3.0 L (3.5-5.0) g/dL Crossmatch 02/01/20 02/01/20 02/02/20 Range/Units 21:39 21:39 01:46 WBC 11.8 H (3.8-10.6) k/uL RBC 2.64 L (4.30-5.90) m/uL Hgb 7.1 L D (13.0-17.5) gm/dL Hct 22.3 L (39.0-53.0) % RDW 16.2 H (11.5-15.5) % Neutrophils # (1.3-7.7) k/uL APTT (22.0-30.0) sec Sodium (137-145) mmol/L Carbon Dioxide (22-30) mmol/L BUN (9-20) mg/dL Glucose (74-99) mg/dL Plasma Lactic Acid Skyler 4.2 H* (0.7-2.0) mmol/L Total Protein (6.3-8.2) g/dL Albumin (3.5-5.0) g/dL Crossmatch See Detail 02/02/20 02/02/20 Range/Units 07:28 07:28 WBC (3.8-10.6) k/uL RBC 2.53 L (4.30-5.90) m/uL Hgb 6.8 L* (13.0-17.5) gm/dL Hct 21.2 L (39.0-53.0) % RDW 16.1 H (11.5-15.5) % Neutrophils # (1.3-7.7) k/uL APTT (22.0-30.0) sec Sodium 126 L (137-145) mmol/L Carbon Dioxide (22-30) mmol/L BUN 22 H (9-20) mg/dL Glucose 108 H (74-99) mg/dL Plasma Lactic Acid Skyler (0.7-2.0) mmol/L Total Protein (6.3-8.2) g/dL Albumin (3.5-5.0) g/dL Crossmatch Diabetes panel 02/01/20 02/02/20 Range/Units 21:39 07:28 Sodium 129 L 126 L (137-145) mmol/L Potassium 4.7 4.4 (3.5-5.1) mmol/L Chloride 100 100 (98-107) mmol/L Carbon Dioxide 18 L 22 (22-30) mmol/L BUN 22 H 22 H (9-20) mg/dL Creatinine 1.03 0.90 (0.66-1.25) mg/dL Glucose 142 H 108 H (74-99) mg/dL Calcium 9.0 8.5 (8.4-10.2) mg/dL AST 35 (17-59) U/L ALT 28 (4-49) U/L Alkaline Phosphatase 71 (38-126) U/L Total Protein 5.9 L (6.3-8.2) g/dL Albumin 3.0 L (3.5-5.0) g/dL Calcium panel 02/01/20 02/02/20 Range/Units 21:39 07:28 Calcium 9.0 8.5 (8.4-10.2) mg/dL Albumin 3.0 L (3.5-5.0) g/dL Pituitary panel 02/01/20 02/02/20 Range/Units 21:39 07:28 Sodium 129 L 126 L (137-145) mmol/L Potassium 4.7 4.4 (3.5-5.1) mmol/L Chloride 100 100 (98-107) mmol/L Carbon Dioxide 18 L 22 (22-30) mmol/L BUN 22 H 22 H (9-20) mg/dL Creatinine 1.03 0.90 (0.66-1.25) mg/dL Glucose 142 H 108 H (74-99) mg/dL Calcium 9.0 8.5 (8.4-10.2) mg/dL Adrenal panel 02/01/20 02/02/20 Range/Units 21:39 07:28 Sodium 129 L 126 L (137-145) mmol/L Potassium 4.7 4.4 (3.5-5.1) mmol/L Chloride 100 100 (98-107) mmol/L Carbon Dioxide 18 L 22 (22-30) mmol/L BUN 22 H 22 H (9-20) mg/dL Creatinine 1.03 0.90 (0.66-1.25) mg/dL Glucose 142 H 108 H (74-99) mg/dL Calcium 9.0 8.5 (8.4-10.2) mg/dL Total Bilirubin 0.4 (0.2-1.3) mg/dL AST 35 (17-59) U/L ALT 28 (4-49) U/L Alkaline Phosphatase 71 (38-126) U/L Total Protein 5.9 L (6.3-8.2) g/dL Albumin 3.0 L (3.5-5.0) g/dL Assessment and Plan Assessment: GI bleeding likely lower Plan: Continaue to monitor HgB. Transfuse as needed for Hgb less than 7. GI consulted follow up their recs. Surgery in this 89 year old with medical comorbidities w ould be a last resort as he is high risk. He is stable at this time. Will continue to follow
--- NOTE | 2020-02-02 13:12 | P.HPIM ---
History of Present Illness H&P Date: 02/02/20 Chief Complaint: Hematochezia This is an 89-year-old male patient of Dr. Perez with a past medical history coronary artery disease, hyperlipidemia, hypothyroidism, hypertension, and hyperlipidemia. Patient presented to the emergency department with reports of rectal bleeding and near-syncope. Patient apparently had a colonoscopy that was done by Dr. Conrad on January 20 due to anemia. A large transverse colon mass was noted, was unable to be removed and biopsies were taken, there was also a significant amount of diverticulosis throughout the sigmoid colon and internal hemorrhoids. 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 Patient reports he was doing well until last night he started to have frequent large bright red bloody bowel movement and felt as if he was going to pass out. Patient did stand up and apparently fell and hit his head on the bathtub. EMS was then called. Patient denies any complaints of nausea or vomiting. Patient had CT of the head and cervical spine that showed cerebral atrophy, no bleed or fracture. CT of abdomen pelvis showed mild prominence of the bladder, but no definite bowel obstruction or inflammation. Patient was found to be anemic initial hemoglobin was 8.7 repeat was 7.1 and then dropped to 6.8, 2 units of packed red blood cells were ordered. Surgery consult placed as well as GI. Patient is on Plavix and aspirin which was held. Will be transferred to the ICU. Review of Systems Constitutional: Reports fatigue, Reports weakness, Denies anorexia, Denies chills, Denies fever Ears, nose, mouth and throat: Denies dysphagia, Denies headache, Denies nasal congestion, Denies nasal discharge, Denies sinus pain, Denies sinus pressure, Denies sore throat Cardiovascular: Reports shortness of breath, Reports syncope, Denies chest pain, Denies claudication, Denies dyspnea on exertion, Denies edema, Denies high blood pressure, Denies leg edema Respiratory: Reports dyspnea, Denies congestion, Denies cough, Denies pain Gastrointestinal: Reports change in bowel habits, Reports hematochezia, Denies abdominal pain, Denies constipation, Denies diarrhea, Denies nausea, Denies vomiting Genitourinary: Denies dysuria, Denies incontinence, Denies urinary frequency, Denies urinary retention Neurological: Reports confusion, Reports weakness, Denies headaches, Denies numbness, Denies paralysis Past Medical History Past Medical History: Coronary Artery Disease (CAD), Chest Pain / Angina, Eye Disorder, Hyperlipidemia, Thyroid Disorder Additional Past Medical History / Comment(s): hx glaucoma L eye previously bef ore cataract surgery, cataract surgery,implants, anemia, decrease appetite History of Any Multi-Drug Resistant Organisms: None Reported Past Surgical History: Adenoidectomy, Back Surgery, Cholecystectomy, Coronary Bypass/CABG, Heart Catheterization With Stent, Hernia Repair, Orthopedic Surgery, Tonsillectomy Additional Past Surgical History / Comment(s): 12/2014 PCI with stent, 2008 PCI with stent, 1998 CABG-1 vessel, back x 2, bone removed from left hip-placed in neck, bilateral cataracts removal and procedure to L eye for glaucoma, L inguinal hernia repair, colonoscopy. Past Anesthesia/Blood Transfusion Reactions: No Reported Reaction Date of Last Stent Placement:: 2014 Past Psychological History: Anxiety Additional Psychological History / Comment(s): Pt states he lives with his Smoking Status: Former smoker Past Alcohol Use History: None Reported Additional Past Alcohol Use History / Comment(s): Pt started smoking in 1943 and quit in 1962. Past Drug Use History: None Reported - Past Family History Father Family Medical History: Cancer Mother Family Medical History: Cancer Additional Family Medical History / Comment(s): Mother had colon cancer removed with surgery. She lived to be 83 or 84yrs old. Brother(s) Family Medical History: Cancer Sister(s) Family Medical History: Cancer, Deep Vein Thrombosis (DVT) Medications and Allergies Home Medications Medication Instructions Recorded Confirmed Type Aspirin 81 mg PO HS 12/26/14 02/01/20 History [place]-3 Fatty Acids/Fish Oil [Fish 1 cap PO DAILY 04/16/16 02/01/20 History Oil 1,000 mg Softgel] Levothyroxine Sodium [Synthroid] 75 mcg PO DAILY 08/10/18 02/01/20 History Losartan Potassium 50 mg PO DAILY 08/10/18 02/01/20 History Rosuvastatin [Crestor] 20 mg PO HS 08/10/18 02/01/20 History Multivitamins, Thera [Multivitamin 1 tab PO DAILY 07/14/19 02/01/20 History (formulary)] Ubidecarenone [Co Q-10] 200 mg PO HS 07/14/19 02/01/20 History Vitamin C(Dose Unknown) 1 tab PO DAILY 07/14/19 02/01/20 History atenoloL [Tenormin] 25 mg PO HS 07/14/19 02/01/20 History Clopidogrel [Plavix] 75 mg PO DAILY #90 tab 07/16/19 02/01/20 Rx Nitroglycerin Sl Tabs [Nitrostat] 0.4 mg SUBLINGUAL Q5M PRN #25 tab 07/16/19 02/01/20 Rx Ferrous Sulfate [Iron (65 MG 325 mg PO DAILY 01/19/20 02/01/20 History Elemental)] Allergies Allergy/AdvReac Type Severity Reaction Status Date / Time Penicillins Allergy Rash/Hives Verified 02/01/20 21:51 Physical Exam Vitals: Vital Signs Temp Pulse Pulse Resp BP BP Pulse Ox 02/02/20 11:38 97.9 F 80 16 117/58 93 L 02/02/20 11:08 98 F 63 16 124/58 94 L 02/02/20 10:58 97.8 F 64 16 123/58 94 L 02/02/20 08:00 97.5 F L 83 16 106/51 96 02/02/20 06:07 70 17 103/60 94 L 02/02/20 00:30 83 16 102/57 96 02/01/20 20:56 99.3 F 91 18 143/92 95 Intake and Output 02/01/20 02/02/20 02/02/20 22:59 06:59 14:59 Intake Total 0 Output Total 700 Balance -700 0 Intake: Blood Product 0 Rc As-1 Unit 0 [id number] Output: Urine 700 Uretheral (Dinero) 700 Other: Voiding Method Indwelling Catheter Weight 78.471 kg 78.471 kg - Constitutional General appearance: average body habitus, cooperative, mild distress - EENT Eyes: PERRLA, normal appearance ENT: hearing grossly normal, normal oropharynx, no pharyngeal erythema, no thrush - Neck Neck: no lymphadenopathy, normal ROM, no stridor, no thyromegaly - Respiratory Respiratory: bilateral: CTA, negative: diminished, dullness, rales, rhonchi, wheezing - Cardiovascular Rhythm: regular Heart sounds: normal: S1, S2 - Gastrointestinal General gastrointestinal: no distended, no hepatomegaly, normal bowel sounds, no organomegaly, soft, no tenderness - Integumentary Integumentary: normal, pale, no rash - Neurologic Neurologic: CNII-XII intact - Musculoskeletal Musculoskeletal: generalized weakness, strength equal bilaterally - Psychiatric Answers questions appropriately, but mildly confused Results CBC & Chem 7: 02/03/20 03:51 02/03/20 03:51 Labs: Abnormal Lab Results - Last 24 Hours (Table) 02/01/20 02/01/20 02/01/20 Range/Units 21:39 21:39 21:39 WBC 12.8 H (3.8-10.6) k/uL RBC 3.19 L (4.30-5.90) m/uL Hgb 8.7 L (13.0-17.5) gm/dL Hct 27.2 L (39.0-53.0) % RDW 15.9 H (11.5-15.5) % Neutrophils # 9.8 H (1.3-7.7) k/uL APTT 18.5 L (22.0-30.0) sec Sodium 129 L (137-145) mmol/L Carbon Dioxide 18 L (22-30) mmol/L BUN 22 H (9-20) mg/dL Glucose 142 H (74-99) mg/dL Plasma Lactic Acid Skyler (0.7-2.0) mmol/L Total Protein 5.9 L (6.3-8.2) g/dL Albumin 3.0 L (3.5-5.0) g/dL Crossmatch 02/01/20 02/01/20 02/02/20 Range/Units 21:39 21:39 01:46 WBC 11.8 H (3.8-10.6) k/uL RBC 2.64 L (4.30-5.90) m/uL Hgb 7.1 L D (13.0-17.5) gm/dL Hct 22.3 L (39.0-53.0) % RDW 16.2 H (11.5-15.5) % Neutrophils # (1.3-7.7) k/uL APTT (22.0-30.0) sec Sodium (137-145) mmol/L Carbon Dioxide (22-30) mmol/L BUN (9-20) mg/dL Glucose (74-99) mg/dL Plasma Lactic Acid Skyler 4.2 H* (0.7-2.0) mmol/L Total Protein (6.3-8.2) g/dL Albumin (3.5-5.0) g/dL Crossmatch See Detail 02/02/20 02/02/20 Range/Units 07:28 07:28 WBC (3.8-10.6) k/uL RBC 2.53 L (4.30-5.90) m/uL Hgb 6.8 L* (13.0-17.5) gm/dL Hct 21.2 L (39.0-53.0) % RDW 16.1 H (11.5-15.5) % Neutrophils # (1.3-7.7) k/uL APTT (22.0-30.0) sec Sodium 126 L (137-145) mmol/L Carbon Dioxide (22-30) mmol/L BUN 22 H (9-20) mg/dL Glucose 108 H (74-99) mg/dL Plasma Lactic Acid Skyler (0.7-2.0) mmol/L Total Protein (6.3-8.2) g/dL Albumin (3.5-5.0) g/dL Crossmatch Thrombosis Risk Factor Assmnt - Choose All That Apply Any of the Below Risk Factors Present?: No Other Risk Factors: No Each Risk Factor Represents 2 Points: Age 61-74 years Other congenital or acquired thrombophilia - If yes, enter type in comment: No Thrombosis Risk Factor Assessment Total Risk Factor Score: 2 Thrombosis Risk Factor Assessment Level: Very Low Risk Assessment and Plan Plan: 1. Acute GI bleed with large transverse colon mass noted on recent colonoscopy. Consult to GI and surgery 2. Acute blood loss anemia. Hemoglobin 6.8, transfuse 2 units packed red blood cells, repeat CBC 3. History of coronary artery disease status post CABG and PCI with stent. ASA and Plavix on hold. 4. Hypothyroidism. Continue levothyroxine 75 g daily 5. Hyperlipidemia. Continue Crestor 20 mg daily 6. Hypertension. Losartan 50mg daily GI prophylaxis. Pantoprazole DVT prophylaxis. SEDs The above impression and plan of care have been discussed and directed by signing physician. Kaylen Bailey nurse practitioner acting as scribe for signing physician.
[2020-02-02 13:13] LABS: Glucose,Whole Blood 127 mg/dL (75-99)
--- NOTE | 2020-02-02 14:51 | CONS ---
CONSULTATION DATE OF DICTATION: February 02, 2020 REQUESTING PHYSICIAN: Dr. Yañez. REASON FOR CONSULTATION: Acute lower GI bleed and symptomatic anemia. HISTORY OF PRESENT ILLNESS: The patient is an 89-year-old pleasant white male with history of iron deficiency anemia, history of coronary artery disease, hypertension, hyperlipidemia, who is on aspirin and Plavix came to the emergency room yesterday complaining of 2 episodes of rectal bleeding and near-syncope. The patient had a colonoscopy by Dr. Conrad on January 20 as a part of evaluation of iron deficiency anemia. Upper endoscopy was unremarkable. Colonoscopy revealed a large transverse colon friable mass and biopsies revealed adenoma with high-grade dysplasia. The patient was supposed to see Dr. Conrad on an outpatient basis sometime soon, but in the meantime, because of the bleeding, he was admitted to the hospital. He dropped his hemoglobin to 6.8 g/dL. Hence, he was transferred to the intensive care unit and currently receiving 2 units of PRBC transfusion. He denies any abdominal pain. He reports no nausea or vomiting. He did not have any bleeding since this morning. He did have a CT of the abdomen and pelvis done in the emergency room late last night that showed normal-appearing liver except for small cysts in the liver, prominence of the bladder wall, otherwise unremarkable. PAST MEDICAL HISTORY: Significant for hypertension, hyperlipidemia, coronary artery disease, hypothyroidism. MEDICATIONS AT HOME: Aspirin, Plavix, iron sulfate, Synthroid, losartan, multivitamin, Nitrostat, Crestor, vitamin C, Tenormin, and omega-3 fatty acids. ALLERGIES: PENICILLIN. SOCIAL HISTORY: No smoking. No alcohol use. PAST SURGICAL HISTORY: Tonsillectomy, adenoidectomy, back surgery, cholecystectomy, CABG, hernia repair, surgery for glaucoma, left inguinal hernia repair. FAMILY HISTORY: Mother had colon cancer. Father had some kind of cancer. REVIEW OF SYSTEMS: CARDIOPULMONARY: He denies any chest pain or shortness of breath. GENITOURINARY: No dysuria or hematuria. MUSCULOSKELETAL: Unremarkable. SKIN: Unremarkable. ENDOCRINE: Unremarkable. PSYCHIATRIC: Unremarkable. NEUROLOGY: Had mild dizziness which is resolved. GI: As mentioned above. ENT/VISION: Unremarkable. CONSTITUTIONAL: No recent weight loss. No fever, chills, night sweats. HEMATOLOGY: Severe anemia. PHYSICAL EXAMINATION: He appears comfortable. Vital signs are stable. Blood pressure 122/62, pulse 64, temperature 98.5. HEENT: Examination unremarkable. Conjunctivae pink. Sclerae anicteric. Oral cavity, no lesions. NECK: No JVD or lymph node enlargement. CHEST: Clear to auscultation. HEART: Regular rate and rhythm. ABDOMEN: Soft. It was nontender, nondistended. Bowel sounds are positive. No organomegaly. EXTREMITIES: No pedal edema. SKIN: No rashes. NEURO: He is alert and oriented x3. No focal deficits. LABS: Labs yesterday, WBC 12.8, hemoglobin 8.7, platelets 315. Early this morning it was 7.1 and this afternoon, hemoglobin is 6.8. BUN and creatinine are normal at 22 and 1.03 respectively. PTT, INR are within normal limits. Plasma lactic acid was 4.2, which is normal this morning. IMPRESSION: 1. Acute lower gastrointestinal bleed in this patient who presented with a few episodes of bright red blood per rectum yesterday and dropped his hemoglobin from 8.7 to 6.8 g/dL. He had an EGD and colonoscopy by Dr. Conrad on January 20 that revealed a small 5 mm cecal polyp that was removed by biopsy and he also had a distal transverse colon polypoid lesion. Biopsies of which revealed tubular adenoma with high-grade dysplasia. He was also noted to have small hemorrhoids and diverticulosis. At this time, the bleeding is likely related to oozing from distal transverse colon mass, but possibility of a diverticular bleed or bleeding from internal hemorrhoids cannot be entirely excluded. CT of abdomen did not show any liver lesions. 2. History of coronary artery disease, status post stent placement on aspirin and Plavix, currently . 3. History of hypertension and hyperlipidemia. RECOMMENDATIONS: 1. Hold aspirin and Plavix. 2. Agree with 2 units of PRBC transfusion. 3. Start him on a clear liquid diet. 4. I had a lengthy discussion with Dr. Conrad as well as Dr. Rowland who is covering Dr. Conrad at this time. Recommend surgical intervention if he continues to have ongoing bleeding. Otherwise, he can have elective surgery on an outpatient basis if the bleeding subsides with conservative approach. The plan was discussed with the patient. He is agreeable to it. We will follow him closely. Thank you for this consultation. MMODL / IJN: [id number] /
--- NOTE | 2020-02-02 15:51 | CONS ---
CONSULTATION PULMONARY/CRITICAL CARE CONSULTATION: DATE OF SERVICE: 02/02/2020 This is a patient who was admitted on January 31. He is an 89-year-old male with a history of CAD who presented to the emergency department with bright red bleeding per rectum. The patient apparently had a recent colonoscopy performed by Dr. Conrad. Biopsies at that time showed high-grade dysplasia. Apparently the patient had been doing well at home but did notice some blood in the toilet bowl. The entire water in the toilet bowl was bright red. The blood was bright red. He denies any black tarry stools. He felt a little bit weak and thought he might pass out. For that reason he decided to come in to be evaluated. Today, an A-Team was called on the patient. The patient apparently had another episode of bright red bleeding per rectum. The nurse was concerned. An A-Team was called. The patient was a bit hypotensive. He was feeling a little bit weak. Hence, the patient will be transferred to the ICU for closer monitoring. The patient is a FULL CODE, except he is not willing to be intubated or mechanically ventilated. MEDICATIONS: Currently his medications include aspirin, fish oil, levothyroxine, losartan, Crestor, multiple vitamins, coenzyme Q, vitamin C, atenolol, elemental iron, Plavix and nitroglycerin tablets. ALLERGIES: PENICILLIN. MEDICAL HISTORY: Medical history includes CAD, angina, hyperlipidemia, hypothyroidism, glaucoma, cataracts and chronic anemia. SURGICAL HISTORY: Surgical history includes adenoidectomy, back surgery, cholecystectomy, bypass grafting, heart catheterization with stent, hernia repair and tonsillectomy. The patient also had a recent colonoscopy and EGD, and surgery on his cervical spine. SOCIAL HISTORY: Positive for previous tobacco use. Denies any alcohol use or illicit drug use. FAMILY HISTORY: Positive for father with cancer, mother with colon cancer, a brother with cancer and a sister with cancer and DVT. REVIEW OF SYSTEMS: CONSTITUTIONAL: Weakness. NEUROLOGIC: Negative. HEENT: Negative. CARDIOVASCULAR: Negative. PULMONARY: Negative. GI: Bright red bleeding per rectum. : Negative. IMMUNOLOGIC: Negative. ENDOCRINOLOGIC: Negative. DERMATOLOGIC: Negative. RHEUMATOLOGIC: Negative. PHYSICAL EXAMINATION: VITAL SIGNS: Current vital signs are reviewed. Temperature is 98, heart rate 81, respiratory rate 22, blood pressure 122/57, mean 78, room-air saturation 95%. GENERAL APPEARANCE: Appears in no acute distress. HEENT: Examination is grossly unremarkable. NECK: Supple. Full range of motion. No adenopathy. Neck veins are flat. CARDIOVASCULAR: Examination reveals regular rhythm and rate. S1, S2 normal. Heart rate 81. LUNGS: Clear. Breath sounds equal. No wheezes, rhonchi or crackles. ABDOMEN: Soft. Bowel sounds are heard. No masses. No tenderness on palpation. EXTREMITIES: Intact. No edema. SKIN: Without rash. NEUROLOGIC: Neurologic examination is brief but nonfocal. LABS/IMAGING: Most recent hemoglobin is 6.8. White count 8.8, hematocrit 21.2, platelet count 264,000. Sodium 126, potassium 4.4, chloride 100, CO2 22. Anion gap is 4. BUN and creatinine were 22 and 0.9. Lactic acid was initially 4.2; repeat 1.8. The patient's initial hemoglobin was 8.7. The patient did receive 2 units of blood. Microbiology is negative. Abdominal CT scan is reviewed. Nothing abnormal on the abdominal CT scan. There is mild prominence of the bladder wall which is nonspecific. Head and cervical spine x-ray showed cerebral atrophy but no acute intracranial abnormality. There is multilevel bony spinal stenosis and spondylitic changes in the cervical spine, but otherwise everything else was okay. CURRENT MEDICATIONS: Reviewed. He is on atenolol, Lipitor, iron, levothyroxine, losartan, multiple vitamins, Narcan, nitroglycerin, Protonix and saline IV. ASSESSMENT: 1. Bright red bleeding per rectum and a recent colonoscopy which showed high-grade dysplasia. 2. History of hypothyroidism. 3. History of hypertension. 4. Hyperlipidemia. 5. Coronary artery disease with previous bypass grafting. 6. Angina pectoris. 7. Glaucoma. 8. Cataracts. 9. Chronic back pain and neck pain. 10.Chronic anemia. PLAN: The patient was transferred to the ICU. I will make sure that Surgery and GI see the patient. No additional recommendations are made. The patient had a recent colonoscopy which showed evidence of high-grade dysplasia. Will continue to follow. The patient is receiving 2 units of blood. MMODL / IJN: [id number] /
[2020-02-02 17:57] LABS: HCT 30.8 % (39.0-53.0); Hypochromasia Slight; MCH 27.9 pg (25.0-35.0); MCHC 32.4 g/dL (31.0-37.0); MCV 86.1 fL (80.0-100.0); Mean Platelet Volume 6.6; Platelet Count 241 k/uL (150-450); RBC 3.58 m/uL (4.30-5.90); RDW 15.9 % (11.5-15.5); WBC 9.7 k/uL (3.8-10.6)
[2020-02-02] MEDS: ATORVASTATIN 40 MG TAB PO SCH (21:58)
[2020-02-02] MEDS: atenoloL 25 MG TAB PO SCH (21:58)
[2020-02-03 00:44] LABS: Anisocytosis Slight; HCT 29.4 % (39.0-53.0); HGB 9.8 gm/dL (13.0-17.5); Hypochromasia Slight; MCH 28.2 pg (25.0-35.0); MCHC 33.4 g/dL (31.0-37.0); MCV 84.6 fL (80.0-100.0); Mean Platelet Volume 7.3; Platelet Count 244 k/uL (150-450); RBC 3.48 m/uL (4.30-5.90); RDW 16.1 % (11.5-15.5); WBC 10.1 k/uL (3.8-10.6)
[2020-02-03 04:28] LABS: Anisocytosis Slight; HCT 30.7 % (39.0-53.0); HGB 9.9 gm/dL (13.0-17.5); Hypochromasia Slight; MCH 27.1 pg (25.0-35.0); MCHC 32.3 g/dL (31.0-37.0); Mean Platelet Volume 6.9; Platelet Count 258 k/uL (150-450); RBC 3.66 m/uL (4.30-5.90); RDW 16.1 % (11.5-15.5)
[2020-02-03 04:40] LABS: Albumin 2.8 g/dL (3.5-5.0); Calcium 8.8 mg/dL (8.4-10.2); Potassium 4.6 mmol/L (3.5-5.1); Total Bilirubin 0.8 mg/dL (0.2-1.3); Total Protein 5.6 g/dL (6.3-8.2)
[2020-02-03] MEDS: SODIUM CHLORIDE 0.9% 1,000 ML IV SCH (06:00)
[2020-02-03] MEDS: LEVOTHYROXINE 75 MCG TAB PO SCH (06:18)
[2020-02-03] MEDS: FERROUS SULFATE 325 MG TAB PO SCH (08:49)
[2020-02-03] MEDS: LOSARTAN 50 MG TAB PO SCH (08:49)
[2020-02-03] MEDS: PANTOPRAZOLE 40 MG/10 ML VIAL IVP SCH (08:49)
[2020-02-03] MEDS: MULTIVITAMINS, THERA 1 EACH TAB PO SCH (08:49)
--- NOTE | 2020-02-03 10:15 | P.PN ---
Subjective Progress Note Date: 02/03/20 Patient doing well no further gi bleeding reported, Hgb stable overnight. Objective - Vital Signs Vital signs: Vital Signs Temp 98.9 F 02/03/20 08:00 Pulse 61 02/03/20 09:00 Resp 16 02/03/20 08:00 BP 135/64 02/03/20 08:00 Pulse Ox 97 02/03/20 08:00 Intake & Output 02/02/20 02/03/20 02/03/20 18:59 06:59 18:59 Intake Total 1045 675 225 Output Total 1250 735 120 Balance -205 -60 105 Weight 78.471 kg Intake: IV 600 225 Sodium Chloride 0.9% 1, 600 225 000 ml @ 75 mls/hr IV . [id number] [facility] Rx#:[id number] Intake, IV Titration 225 75 Amount Sodium Chloride 0.9% 1, 225 75 000 ml @ 75 mls/hr IV . [id number] [facility] Rx#:[id number] Oral 200 Blood Product 620 Rc As-1 Unit 310 [id number] Rc As-1 Unit 310 [id number] Output: Urine 1250 735 120 Other: Voiding Method Indwelling Catheter Indwelling Catheter Indwelling Catheter - Constitutional General appearance: Present: cooperative - Cardiovascular Rhythm: regular - Gastrointestinal Gastrointestinal Comment(s): S/NT/ND - Labs CBC & Chem 7: 02/03/20 03:51 02/03/20 03:51 Labs: Abnormal Lab Results - Last 24 Hours (Table) 02/01/20 02/02/20 02/02/20 Range/Units 21:39 13:11 17:34 WBC (3.8-10.6) k/uL RBC 3.58 L (4.30-5.90) m/uL Hgb 10.0 L D (13.0-17.5) gm/dL Hct 30.8 L (39.0-53.0) % RDW 15.9 H (11.5-15.5) % Sodium (137-145) mmol/L Glucose (74-99) mg/dL POC Glucose (mg/dL) 127 H (75-99) mg/dL Total Protein (6.3-8.2) g/dL Albumin (3.5-5.0) g/dL Crossmatch See Detail 02/02/20 02/03/20 02/03/20 Range/Units 22:52 03:51 03:51 WBC 11.0 H (3.8-10.6) k/uL RBC 3.48 L 3.66 L (4.30-5.90) m/uL Hgb 9.8 L 9.9 L (13.0-17.5) gm/dL Hct 29.4 L 30.7 L (39.0-53.0) % RDW 16.1 H 16.1 H (11.5-15.5) % Sodium 128 L (137-145) mmol/L Glucose 107 H (74-99) mg/dL POC Glucose (mg/dL) (75-99) mg/dL Total Protein 5.6 L (6.3-8.2) g/dL Albumin 2.8 L (3.5-5.0) g/dL Crossmatch Assessment and Plan Assessment: GI bleed Plan: Hgb is stable. continue to monitor Hgb. No plans for acute surgical intervention, if patient does not have any more bleeding he can follow up with Dr. Conrad as an outpatient for further evaluation.
--- NOTE | 2020-02-03 10:41 | P.PN ---
Subjective Progress Note Date: 02/03/20 Principal diagnosis: Anemia, bright red blood per rectum 89-year-old white male patient with a history of coronary artery disease, hypertension, hypothyroidism, glaucoma, chronic anemia, hyperlipidemia, who came into the hospital for 2019 for evaluation of bright red bleeding per rectum. She had a recent colonoscopy performed by Dr. 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 Apparently patient went home and noticed some on and blood in the toilet bowl. Denied any black tarry stools, no abdominal pain, he's feeling weak, he may have had episode of passing out at home. History patient was transferred to the intensive care unit for concern of bright red bleeding, and anemia, his hemoglobin was down to 6.8 requiring transfusion with 2 units of blood, this morning is 9.9, he has had no bleeding overnight. He sitting up in a recliner this morning, appears a bit pale but appears to be in no acute distress, denies any shortness of breath, denies any chest pain, vitals been stable. Pressure is 135/64, room air pulse ox is 97%, he is in sinus rhyt hm on the monitor, with a controlled rate, no tachycardia, no fever or chills. CT of the abdomen was completed showing diverticulosis without evidence of diverticulitis, no obstruction, bladder showed mild prominence of the bladder wall which was nonspecific. Patient has had no acute events overnight, surgical services are following, and patient can be cleared for discharge possibly tomorrow Objective - Vital Signs Vital signs: Vital Signs Temp 98.9 F 02/03/20 08:00 Pulse 61 02/03/20 09:00 Resp 16 02/03/20 08:00 BP 135/64 02/03/20 08:00 Pulse Ox 97 02/03/20 08:00 Intake & Output 02/02/20 02/03/20 02/03/20 18:59 06:59 18:59 Intake Total 1045 675 225 Output Total 1250 735 120 Balance -205 -60 105 Weight 78.471 kg Intake: IV 600 225 Sodium Chloride 0.9% 1, 600 225 000 ml @ 75 mls/hr IV . [id number] [facility] Rx#:[id number] Intake, IV Titration 225 75 Amount Sodium Chloride 0.9% 1, 225 75 000 ml @ 75 mls/hr IV . [id number] [facility] Rx#:[id number] Oral 200 Blood Product 620 Rc As-1 Unit 310 [id number] Rc As-1 Unit 310 [id number] Output: Urine 1250 735 120 Other: Voiding Method Indwelling Catheter Indwelling Catheter Indwelling Catheter - Exam GENERAL EXAM: Alert, very pleasant, on room air, with a pulse ox of 97% comfortable in no apparent distress. HEAD: Normocephalic/atraumatic. EYES: Normal reaction of pupils, equal size. Conjunctiva pink, sclera white. NOSE: Clear with pink turbinates. THROAT: No erythema or exudates. NECK: No masses, no JVD, no thyroid enlargement, no adenopathy. CHEST: No chest wall deformity. Symmetrical expansion. LUNGS: Equal air entry with no crackles, wheeze, rhonchi or dullness. CVS: Regular rate and rhythm, normal S1 and S2, no gallops, no murmurs, no rubs ABDOMEN: Soft, nontender. No hepatosplenomegaly, normal bowel sounds, no guarding or rigidity. EXTREMITIES: No clubbing, no edema, no cyanosis, 2+ pulses and upper and lower extremities. MUSCULOSKELETAL: Muscle strength and tone normal. SPINE: No scoliosis or deformity SKIN: No rashes CENTRAL NERVOUS SYSTEM: Alert and oriented -3. No focal deficits, tone is normal in all 4 extremities. PSYCHIATRIC: Alert and oriented -3. Appropriate affect. Intact judgment and insight. - Labs CBC & Chem 7: 02/03/20 03:51 02/03/20 03:51 Labs: Abnormal Lab Results - Last 24 Hours (Table) 02/01/20 02/02/20 02/02/20 Range/Units 21:39 13:11 17:34 WBC (3.8-10.6) k/uL RBC 3.58 L (4.30-5.90) m/uL Hgb 10.0 L D (13.0-17.5) gm/dL Hct 30.8 L (39.0-53.0) % RDW 15.9 H (11.5-15.5) % Sodium (137-145) mmol/L Glucose (74-99) mg/dL POC Glucose (mg/dL) 127 H (75-99) mg/dL Total Protein (6.3-8.2) g/dL Albumin (3.5-5.0) g/dL Crossmatch See Detail 02/02/20 02/03/20 02/03/20 Range/Units 22:52 03:51 03:51 WBC 11.0 H (3.8-10.6) k/uL RBC 3.48 L 3.66 L (4.30-5.90) m/uL Hgb 9.8 L 9.9 L (13.0-17.5) gm/dL Hct 29.4 L 30.7 L (39.0-53.0) % RDW 16.1 H 16.1 H (11.5-15.5) % Sodium 128 L (137-145) mmol/L Glucose 107 H (74-99) mg/dL POC Glucose (mg/dL) (75-99) mg/dL Total Protein 5.6 L (6.3-8.2) g/dL Albumin 2.8 L (3.5-5.0) g/dL Crossmatch Assessment and Plan Plan: Assessment: #1. Bright red bleeding per rectum, with recent colonoscopy which showed high-grade dysplasia #2. Acute blood loss anemia with hemoglobin of 6.8, requiring 2 units of packed red blood cells, and current hemoglobin is 9.9 #3. History of hypertension #4. History of hypothyroidism #5. Coronary artery disease with previous bypass grafting #6. History of angina pectoris #7. Glaucoma #8. Chronic back pain and neck pain #9. Chronic anemia Plan: Continue current medical treatment, continue IV fluids, there has been no bleeding overnight, vital signs are stable, patient can be transferred out of intensive care unit to the medical floor. Surgical services are following, and if no further bleeding patient will likely be considered for discharge home in the next 24 hours I performed a history & physical examination of the patient and discussed their management with my nurse practitioner, Najma Zelaya. I reviewed the nurse practitioner's note and agree with the documented findings and plan of care. Lung sounds are positive for diminished breath sounds. The findings and the impression was discussed with the patient. I attest to the documentation by the nurse practitioner. Time with Patient: Less than 30
--- NOTE | 2020-02-03 10:53 | P.PN ---
Subjective This is an 89-year-old male patient of Dr. Perez with a past medical history coronary artery disease, hyperlipidemia, hypothyroidism, hypertension, and hyperlipidemia. Patient presented to the emergency department with reports of rectal bleeding and near-syncope. Patient apparently had a colonoscopy that was done by Dr. Conrad on January 20 due to anemia. A large transverse colon mass was noted, was unable to be removed and biopsies were taken, there was also a significant amount of diverticulosis throughout the sigmoid colon and internal hemorrhoids. 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 Patient reports he was doing well until last night he started to have frequent large bright red bloody bowel movement and felt as if he was going to pass out. Patient did stand up and apparently fell and hit his head on the bathtub. EMS was then called. Patient denies any complaints of nausea or vomiting. Patient had CT of the head and cervical spine that showed cerebral atrophy, no bleed or fracture. CT of abdomen pelvis showed mild prominence of the bladder, but no definite bowel obstruction or inflammation. Patient was found to be anemic initial hemoglobin was 8.7 repeat was 7.1 and then dropped to 6.8, 2 units of packed red blood cells were ordered. Surgery consult placed as well as GI. Patient is on Plavix and aspirin which was held. Will be transferred to the ICU. 02/02: Patient evaluated today in the ICU, noted to be sitting up in the bedside chair in no acute distress. He denies any abdominal pain, no nausea vomiting or diarrhea. Patient reports bowel movements are still dark with some bright red blood streaks. Patient did receive 2 units of packed red cells yesterday, hemoglobin is stable today at 9.9. Vital signs are stable blood pressure 135/64, heart rate 63, respiratory 16, temperature 98.9, he is 97% on room air. Surgery is following and does not plan any acute surgical intervention at this time, will need to follow up as outpatient for the colon mass. His hemoglobin remained stable patient will more likely be discharged home with follow-up with surgery. Objective - Vital Signs Vital signs: Vital Signs Temp 98.9 F 02/03/20 08:00 Pulse 61 02/03/20 09:00 Resp 16 02/03/20 08:00 BP 135/64 02/03/20 08:00 Pulse Ox 97 02/03/20 08:00 Intake & Output 02/02/20 02/03/20 02/03/20 18:59 06:59 18:59 Intake Total 1045 675 225 Output Total 1250 735 120 Balance -205 -60 105 Weight 78.471 kg Intake: IV 600 225 Sodium Chloride 0.9% 1, 600 225 000 ml @ 75 mls/hr IV . [id number] [facility] Rx#:[id number] Intake, IV Titration 225 75 Amount Sodium Chloride 0.9% 1, 225 75 000 ml @ 75 mls/hr IV . [id number] [facility] Rx#:[id number] Oral 200 Blood Product 620 Rc As-1 Unit 310 [id number] Rc As-1 Unit 310 [id number] Output: Urine 1250 735 120 Other: Voiding Method Indwelling Catheter Indwelling Catheter Indwelling Catheter - Exam - Constitutional General appearance: average body habitus, cooperative, no acute distress - EENT Eyes: PERRLA, normal appearance ENT: hearing grossly normal, normal oropharynx, no pharyngeal erythema, no thrush - Neck Neck: no lymphadenopathy, normal ROM, no stridor, no thyromegaly - Respiratory Respiratory: bilateral: CTA, negative: diminished, dullness, rales, rhonchi, wheezing - Cardiovascular Rhythm: regular Heart sounds: normal: S1, S2 - Gastrointestinal General gastrointestinal: no distended, no hepatomegaly, normal bowel sounds, no organomegaly, soft, no tenderness - Integumentary Integumentary: normal, pale, no rash - Neurologic Neurologic: CNII-XII intact - Musculoskeletal Musculoskeletal: generalized weakness, strength equal bilaterally - Psychiatric Answers questions appropriately, but mildly confused - Labs CBC & Chem 7: 02/03/20 03:51 02/03/20 03:51 Labs: Abnormal Lab Results - Last 24 Hours (Table) 02/01/20 02/02/20 02/02/20 Range/Units 21:39 13:11 17:34 WBC (3.8-10.6) k/uL RBC 3.58 L (4.30-5.90) m/uL Hgb 10.0 L D (13.0-17.5) gm/dL Hct 30.8 L (39.0-53.0) % RDW 15.9 H (11.5-15.5) % Sodium (137-145) mmol/L Glucose (74-99) mg/dL POC Glucose (mg/dL) 127 H (75-99) mg/dL Total Protein (6.3-8.2) g/dL Albumin (3.5-5.0) g/dL Crossmatch See Detail 02/02/20 02/03/20 02/03/20 Range/Units 22:52 03:51 03:51 WBC 11.0 H (3.8-10.6) k/uL RBC 3.48 L 3.66 L (4.30-5.90) m/uL Hgb 9.8 L 9.9 L (13.0-17.5) gm/dL Hct 29.4 L 30.7 L (39.0-53.0) % RDW 16.1 H 16.1 H (11.5-15.5) % Sodium 128 L (137-145) mmol/L Glucose 107 H (74-99) mg/dL POC Glucose (mg/dL) (75-99) mg/dL Total Protein 5.6 L (6.3-8.2) g/dL Albumin 2.8 L (3.5-5.0) g/dL Crossmatch Assessment and Plan Plan: 1. Acute GI bleed with large transverse colon mass noted on recent colonoscopy which showed high-grade dysplasia. No acute surgical intervention at this time, bleeding has stabilized, will continue to monitor CBC and will need to follow up with surgery as outpatient. 2. Acute blood loss anemia. withy a Hemoglobin of 6.8, status post 2 units packed red blood cells, hemoglobin is stable, will continue monitor CBC 3. History of coronary artery disease status post CABG and PCI with stent. ASA and Plavix on hold. 4. Hypothyroidism. Continue levothyroxine 75 g daily 5. Hyperlipidemia. Continue Crestor 20 mg daily 6. Hypertension. Losartan 50mg daily GI prophylaxis. Pantoprazole DVT prophylaxis. SEDs The above impression and plan of care have been discussed and directed by signing physician. Kaylen Bailey nurse practitioner acting as scribe for signing physician.
--- NOTE | 2020-02-03 15:32 | PN ---
PROGRESS NOTE DATE OF DICTATION: February 03, 2020 Patient is an 89-year-old pleasant white male admitted to the hospital with acute lower GI bleed. He dropped his hemoglobin to 6.8 requiring 2 units of PRBC transfusion yesterday. Repeat hemoglobin 9.9 g/dL. He denies any further episodes of bleeding. He is sitting in the ICU with no obvious complaints. No abdominal pain. No nausea, no vomiting. PHYSICAL EXAMINATION: Appears comfortable. VITAL SIGNS: Stable. Blood pressure 135/64, pulse rate 63, temperature 98.9. HEENT: Examination unremarkable. Conjunctivae pink. Sclerae anicteric. Oral cavity, no lesions. NECK: No JVD or lymph node enlargement. CHEST: Was clear auscultation. HEART: Regular rate and rhythm. ABDOMEN: Soft. Bowel sounds are positive. No organomegaly. EXTREMITIES: No pedal edema. NEURO: He is alert and oriented x3. No focal deficits. LABS: WBC 11, hemoglobin 9.9, platelets normal. BUN and creatinine are within normal limits. IMPRESSION: 1. Acute lower gastrointestinal bleed. The patient is status post colonoscopy by Dr. Conrad 2 weeks ago that showed large friable polypoid lesion in the transverse colon that was biopsied which showed high-grade dysplasia. This could be the possible source of bleeding but possibility of bleeding from internal hemorrhoids cannot be excluded. He received 2 units of PRBC transfusion and repeat hemoglobin is 9.1 g/dL. Currently the bleeding has stopped and patient remains hemodynamically stable. Surgery following the patient closely. 2. History of coronary artery disease, status post coronary artery bypass grafting. Presently on aspirin and Plavix, which is on hold. 3. History of hypertension and hyperlipidemia. RECOMMENDATIONS: 1. Continue to hold antiplatelet agents. 2. Continue with a clear liquid diet for one more day. 3. Monitor CBC on a daily basis. 4. We will follow with you closely. No plans for any endoscopic intervention at the present time .. Thank you for this consultation. MMODL / IJN: [id number] /
[2020-02-03] MEDS: ATORVASTATIN 40 MG TAB PO SCH (20:37)
[2020-02-03] MEDS: atenoloL 25 MG TAB PO SCH (20:37)
[2020-02-04] MEDS: LEVOTHYROXINE 75 MCG TAB PO SCH (05:30)
[2020-02-04 06:02] LABS: Anisocytosis Slight; Basophils % (A) 0 %; Eosinophils # (A) 0.1 k/uL (0-0.7); Eosinophils % (A) 1 %; HCT 27.8 % (39.0-53.0); HGB 9.4 gm/dL (13.0-17.5); Lymphocytes % (A) 10 %; MCH 28.3 pg (25.0-35.0); MCHC 33.7 g/dL (31.0-37.0); Mean Platelet Volume 6.9; Monocytes # (A) 0.4 k/uL (0-1.0); Monocytes % (A) 4 %; Neutrophils % (A) 82 %; Platelet Count 203 k/uL (150-450); RBC 3.31 m/uL (4.30-5.90); RDW 16.1 % (11.5-15.5); WBC 9.7 k/uL (3.8-10.6)
[2020-02-04 07:32] VITALS: RESP 18
[2020-02-04] MEDS: PANTOPRAZOLE 40 MG/10 ML VIAL IVP SCH (07:52)
[2020-02-04] MEDS: MULTIVITAMINS, THERA 1 EACH TAB PO SCH (07:53)
[2020-02-04] MEDS: FERROUS SULFATE 325 MG TAB PO SCH (07:53)
[2020-02-04] MEDS: LOSARTAN 50 MG TAB PO SCH (07:53)
[2020-02-04 10:57] LABS: African American GFR (CKD) 91.8 (60.0-200.0); Albumin 2.9 g/dL (3.80-4.90); Albumin/Globulin Ratio 1.53 (1.60-3.17); Anion Gap 6.8 mmol/L (4.00-12.00); BUN/Creat Ratio 17.5 Ratio (12.00-20.00); Calcium 8.3 mg/dL (8.7-10.3); Carbon Dioxide 23.2 mmol/L (21.6-31.8); Globulin 1.9 g/dL (1.6-3.3); Non-African American GFR(CKD) 79.2 (60.0-200.0); Potassium 3.9 mmol/L (3.5-5.5); Total Bilirubin 0.8 mg/dL (0.2-1.2); Total Protein 4.8 g/dL (6.2-8.2)
--- NOTE | 2020-02-04 12:19 | P.PN ---
Subjective Progress Note Date: 02/04/20 Principal diagnosis: Anemia, bright red blood per rectum 89-year-old white male patient with a history of coronary artery disease, hypertension, hypothyroidism, glaucoma, chronic anemia, hyperlipidemia, who came into the hospital for 2019 for evaluation of bright red bleeding per rectum. She had a recent colonoscopy performed by Dr. 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 Apparently patient went home and noticed some on and blood in the toilet bowl. Denied any black tarry stools, no abdominal pain, he's feeling weak, he may have had episode of passing out at home. History patient was transferred to the intensive care unit for concern of bright red bleeding, and anemia, his hemoglobin was down to 6.8 requiring transfusion with 2 units of blood, this morning is 9.9, he has had no bleeding overnight. He sitting up in a recliner this morning, appears a bit pale but appears to be in no acute distress, denies any shortness of breath, denies any chest pain, vitals been stable. Pressure is 135/64, room air pulse ox is 97%, he is in sinus rhyt hm on the monitor, with a controlled rate, no tachycardia, no fever or chills. CT of the abdomen was completed showing diverticulosis without evidence of diverticulitis, no obstruction, bladder showed mild prominence of the bladder wall which was nonspecific. Patient has had no acute events overnight, surgical services are following, and patient can be cleared for discharge possibly tomorrow The patient is seen today 02/04/2020 in follow-up on the regular medical floor. He is awake and alert in no acute distress. No further bleeding noted. Maintaining O2 saturations in the 90s on room air. He's been afebrile. Hemodynamically stable. Status post 2 units of packed blood cells this adm ission. Current hemoglobin 9.4. White count 9.7. Sodium 1:30. Potassium 3.9. Creatinine 0.8. Remains on Protonix. Objective - Vital Signs Vital signs: Vital Signs Temp 98.0 F 02/04/20 07:31 Pulse 54 L 02/04/20 08:00 Resp 18 02/04/20 08:00 BP 162/71 02/04/20 07:31 Pulse Ox 96 02/04/20 07:31 Intake & Output 02/03/20 02/04/2020 18:59 06:59 18:59 Intake Total 465 640 Output Total 370 700 Balance 95 -60 Weight 81.5 kg Intake: IV 225 Sodium Chloride 0.9% 1, 225 000 ml @ 75 mls/hr IV . [id number] [facility] Rx#:[id number] Oral 240 640 Output: Urine 370 700 Other: Voiding Method Indwelling Catheter Indwelling Catheter Indwelling Catheter # Voids 3 - Exam GENERAL EXAM: Alert, very pleasant, 89-year-old gentleman, on room air, with a pulse ox of 96% comfortable in no apparent distress. HEAD: Normocephalic/atraumatic. EYES: Normal reaction of pupils, equal size. Conjunctiva pink, sclera white. NOSE: Clear with pink turbinates. THROAT: No erythema or exudates. NECK: No masses, no JVD, no thyroid enlargement, no adenopathy. CHEST: No chest wall deformity. Symmetrical expansion. LUNGS: Equal air entry with no crackles, wheeze, rhonchi or dullness. CVS: Regular rate and rhythm, normal S1 and S2, no gallops, no murmurs, no rubs ABDOMEN: Soft, nontender. No hepatosplenomegaly, normal bowel sounds, no guarding or rigidity. EXTREMITIES: No clubbing, no edema, no cyanosis, 2+ pulses and upper and lower extremities. MUSCULOSKELETAL: Muscle strength and tone normal. SPINE: No scoliosis or deformity SKIN: No rashes CENTRAL NERVOUS SYSTEM: No focal deficits, tone is normal in all 4 extremities. PSYCHIATRIC: Alert and oriented -3. Appropriate affect. Intact judgment and insight. - Labs CBC & Chem 7: 02/04/20 05:37 02/04/20 05:37 Labs: Abnormal Lab Results - Last 24 Hours (Table) 02/04/20 02/04/20 Range/Units 05:37 05:37 RBC 3.31 L (4.30-5.90) m/uL Hgb 9.4 L (13.0-17.5) gm/dL Hct 27.8 L (39.0-53.0) % RDW 16.1 H (11.5-15.5) % Neutrophils # 8.0 H (1.3-7.7) k/uL Sodium 130 L (135-145) mmol/L Calcium 8.3 L (8.7-10.3) mg/dL Total Protein 4.8 L (6.2-8.2) g/dL Albumin 2.90 L (3.80-4.90) g/dL Albumin/Globulin Ratio 1.53 L (1.60-3.17) g/dL Assessment and Plan Assessment: 1 Bright red bleeding per rectum, with recent colonoscopy which showed high- grade dysplasia 2 Acute blood loss anemia with hemoglobin of 6.8, requiring 2 units of packed red blood cells, and current hemoglobin is 9.4 3 History of hypertension 4 History of hypothyroidism 5 Coronary artery disease with previous bypass grafting 6 History of angina pectoris 7 Glaucoma 8 Chronic back pain and neck pain 9 Chronic anemia Plan: The patient was seen and evaluated by Dr. Wilson No further evidence of acute bleed Cleared for discharge from the pulmonary/critical care standpoint I, the cosigning physician, performed a history & physical examination of the patient. Lungs sounds are clear. Maintaining good O2 saturations in the 90s on room air. I discussed the assessment and plan of care with my nurse practitioner, Rekha Purdy. I attest to the above note as dictated by her.
--- NOTE | 2020-02-04 13:12 | PN ---
PROGRESS NOTE DATE OF SERVICE: February 03. REQUESTING PHYSICIAN: Dr. Goins. HISTORY: The patient is an 89-year-old pleasant white male admitted to hospital with acute lower GI bleed. He is doing better. He was transferred from the intensive care unit. He denies any complaints today. No abdominal pain. No nausea, no vomiting. PHYSICAL EXAMINATION: Appears comfortable, no apparent distress. VITAL SIGNS: Stable. Blood pressure is 132/86, pulse rate 80 per minute and afebrile. HEENT: Examination unremarkable. Conjunctivae pink. Sclerae anicteric. Oral cavity no lesions, NECK: No JVD or lymph node enlargement. HEART: Regular rate and rhythm. ABDOMEN: Soft, bowel sounds are positive. No organomegaly. EXTREMITIES: No pedal edema. NEUROLOGIC: Alert and oriented x3. No focal deficits. LABS: Labs done today, hemoglobin is 9.4, WBC 9.7, platelets normal. The rest of the labs are within normal limits. IMPRESSION: 1. Acute lower GI bleed, status post colonoscopy 2 weeks ago and was noted to have a friable distal transverse colon mass, biopsies of which revealed high-grade dysplasia. The patient had some bleeding and hemoglobin of 6.4. Did receive 2 units of PRBC transfusion. Last hemoglobin is 9.4. No further episodes of bleeding. Patient doing well. 2. Coronary artery disease, on aspirin and Plavix, currently on hold. 3. History of hypertension and hypothyroidism. RECOMMENDATIONS: 1. Advance diet as tolerated. 2. He can be discharged home today with outpatient followup with Dr. Conrad next week. Thank you for this consultation. MMODL / IJN: [id number] /
[2020-02-04 14:51] VITALS: BP 131/67; PULSE 63; TEMP 97.5
== END 2020-02-04 14:54 | disposition home or self-care (01) | DRG 394 ==
LOC: EC 20:53 → 3SCARD 23:08 → 2SICU 02-02 12:48 → 4SSUR 02-03 14:03 → 2SICU 02-03 14:03 → 4SSUR 02-03 15:15
PROVIDERS: ADMIT Internal Medicine; ATTEND Internal Medicine
PROC: 30233N1 Transfusion of Nonautologous Red Blood Cells into Peripheral Vein, Percutaneous Approach (ICD-10-PCS; principal; 2020-02-01)
DX: D12.6 Benign neoplasm of colon, unspecified (principal); D62 Acute posthemorrhagic anemia; K64.8 Other hemorrhoids; E03.9 Hypothyroidism, unspecified; D50.9 Iron deficiency anemia, unspecified; E78.5 Hyperlipidemia, unspecified; F41.9 Anxiety disorder, unspecified; G89.29 Other chronic pain; H26.9 Unspecified cataract; I10 Essential (primary) hypertension; K57.90 Diverticulosis of intestine, part unspecified, without perforation or abscess without bleeding; I25.10 Atherosclerotic heart disease of native coronary artery without angina pectoris; H40.9 Unspecified glaucoma; Z79.02 Long term (current) use of antithrombotics/antiplatelets; Z95.5 Presence of coronary angioplasty implant and graft; Z95.1 Presence of aortocoronary bypass graft; Z90.49 Acquired absence of other specified parts of digestive tract; Z87.891 Personal history of nicotine dependence; Z80.0 Family history of malignant neoplasm of digestive organs; Z79.899 Other long term (current) drug therapy; Z79.890 Hormone replacement therapy; Z79.82 Long term (current) use of aspirin
CPT/HCPCS: 36415; 70450; 72125; 74177; 80048; 80053; 83605; 84484; 85025; 85027; 85610; 85730; 86850; 86900; 86901; 86920; 93005; 96360; 96361; 99285

== ENCOUNTER → 2020-02-09 | Outpatient (CLI) | payer MEDICARE, BC ==
[2020-02-09 14:56] LABS: Anisocytosis Slight; Basophils % (A) 0 %; Eosinophils # (A) 0.1 k/uL (0-0.7); Eosinophils % (A) 1 %; HCT 30.9 % (39.0-53.0); HGB 9.7 gm/dL (13.0-17.5); Hypochromasia Slight; Lymphocytes # (A) 1.2 k/uL (1.0-4.8); Lymphocytes % (A) 12 %; MCH 26.7 pg (25.0-35.0); MCHC 31.4 g/dL (31.0-37.0); MCV 85.1 fL (80.0-100.0); Mean Platelet Volume 6.8; Monocytes # (A) 0.4 k/uL (0-1.0); Monocytes % (A) 4 %; Neutrophils # (A) 7.9 k/uL (1.3-7.7); Neutrophils % (A) 80 %; Platelet Count 247 k/uL (150-450); RBC 3.62 m/uL (4.30-5.90); RDW 16.2 % (11.5-15.5); WBC 9.9 k/uL (3.8-10.6)
[2020-02-09 15:04] LABS: Calcium 9.1 mg/dL (8.4-10.2); Potassium 4.9 mmol/L (3.5-5.1)
[2020-02-09 15:10] LABS: Partial Thromboplastin Time 23.9 sec (22.0-30.0); Prothrombin Time 10.6 sec (9.0-12.0)
== END ==
LOC: LABWHC1 14:02
PROVIDERS: ATTEND Surgery
DX: Z01.818 Encounter for other preprocedural examination (principal); K63.89 Other specified diseases of intestine; Z20.828 Contact with and (suspected) exposure to other viral communicable diseases
CPT/HCPCS: 80048; 85025; 85610; 85730; 93005; U0003